=== PATIENT | male | born 1960 | race Caucasian/White ===

== ENCOUNTER → 2024-10-20 | Outpatient (CLI) | payer MEDICAID, SELFPAY ==
--- NOTE | 2024-10-20 14:38 | CT_ITS ---
PROCEDURE: CT EXTREMITY LOWER RIGHT WITHOUT CONTRAST REASON FOR EXAM: Right knee osteoarthritis. Pre-surgical planning for total knee arthroplasty. TECHNIQUE: Multiple, axial CT images of the right knee were obtained without intravenous contrast for pre-surgical planning. Axial images through the right hip and right ankle are obtained as well. Coronal and sagittal 2D reformatted images were provided. COMPARISON: None. FINDINGS: There are moderate to severe tricompartment degenerative changes involving the right knee joint greatest along the medial knee joint compartment with severe joint space narrowing, marginal osteophytes, and subchondral sclerosis. There is chondrocalcinosis of the knee joint. There is a moderate suprapatellar knee joint effusion. There is a Enriquez's cyst measuring 4.6 x 1.3 x 1.4 cm. There is atrophy of the musculature. No acute fracture or dislocation is identified. There are degenerative changes of the right hip joint. Colonic diverticulosis is identified. No acute findings are seen involving the ankle region. There are degenerative changes with diminished bone mineralization. CT/Extremity Lower without Contra IMPRESSION: 1. Examination performed for pre-surgical planning. 2. Moderate to severe tricompartment degenerative changes of the right knee christopher nt greatest involving the medial knee joint compartment. 3. Moderate suprapatellar knee joint effusion. 4. Enriquez's cyst. One or more dose reduction techniques were used (e.g., Automated exposure contr ol, adjustment of the mA and/or kV according to patient size, use of iterative reconstruction technique). Reading Location: [facility]
== END | disposition home or self-care (01) ==
PROVIDERS: Referring Provider Orthopaedic Surgery; Visit Provider Orthopaedic Surgery
DX: M17.11 Unilateral primary osteoarthritis, right knee (principal)
CPT/HCPCS: 73700

== ENCOUNTER 2024-12-07 10:22 | Inpatient (IN) | payer MEDICAID, SELFPAY ==
--- NOTE | 2024-10-20 16:10 | PAT.ANESEVAL ---
Pre-Assessment Diagnosis/Proposed Procedure Planned Operative Procedure(s): RIGHT TOTAL KNEE ARTHROPLASTY Anesthesia History Anesthesia History - dispensing operator: Anesthesia History - dispensing operator Hx Hospitalization Yes 10/19/24 13:45 Any Problems With Anesthesia No 10/19/24 13:45 Cholinesterase deficiency No 10/19/24 13:45 You/Your Family Experience No 10/19/24 13:45 fever (hyperthermia) with Relationship Recent Exposure to Contagious Disease Does patient have nerve No 10/19/24 13:45 stimulator Patient instructed to have device shut off --Does patient have Pacemaker or ICD? When Was Last Pacemaker Check QUESTION #4 FULL TEXT: You/Your Family Experience fever (hyperthermia) with Anesthesia Last Oral Intake Last Oral intake: Last Oral Intake NPO since Meds taken in AM with sips of water? Meds patient instructed to take am of surgery PONV PONV - dispensing operator: PONV - dispensing operator Female No 10/19/24 13:45 HX of Motion Sickness No 10/19/24 13:45 HX of N/V After Surgery No 10/19/24 13:45 Non-Smoker Yes 10/19/24 13:45 Duration of Surgery greater Yes 10/19/24 13:45 than 60 minutes Number of Risk Factors 2 10/19/24 13:45 PONV Score Moderate Risk 10/19/24 13:45 Respiratory Assessment Respiratory Assessment - dispensing operator: Respiratory Tract Infection Hx - dispensing operator Hx Respiratory Tract Infection No 10/19/24 13:45 STOP Sleep Apnea STOP Sleep Apnea - dispensing operator: STOP Sleep Apnea - dispensing operator Hx Hypertension No 10/19/24 13:45 Hx Sleep Apnea No 10/19/24 13:45 CPAP BIPAP Do you snore loudly (louder No 10/19/24 13:45 than talking or can be heard Do you often feel tired/ No 10/19/24 13:45 fatigued/ sleepy during daytime? Has anyone observed you stop No 10/19/24 13:45 breathing during sleep? STOP Results Negative 10/19/24 13:45 QUESTION #5 FULL TEXT : Do you snore loudly (louder than talking or can be heard through closed doors)? 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 Specify any problems Hx of Preganancy in last 3 N/A 10/19/24 13:45 Months Nurse Filling Out Transfusion DSCHRIBER 10/19/24 13:45 & Questions: Date: 10/19/24 10/19/24 13:45 Time: 13:47 10/19/24 13:45 Patient unable to answer at this time (ie. confused, unrespo /Reproduction History /Reproductive History - dispensing operator: /Reproductive Hx- dispensing operator Hx Now No 10/19/24 13:45 Gestational Age (in weeks): EDC: Hx Hx Para Hx Section SAB No 10/19/24 13:45 PFSH Medical History (Updated 10/19/24 @ 14:09 by Gwendolyn Larson) Chronic respiratory failure Lives in alf Wears glasses Alcohol use Thyroid disease Arthritis BPH (benign prostatic hyperplasia) Low iron Gastric reflux Former smoker Hepatic fibrosis Polyneuropathy Otitis media History of edema History of pain when walking Hypotension History of CHF (congestive heart failure) Home Medications ?Medication ?Instructions ?Recorded ?Last Taken ?Type acetaminophen 325 mg capsule 325 mg PO Q4H PRN pain 09/27/24 Unknown History capsaicin 0.1 % topical cream 1 applic topical QHS LEG PAIN 09/27/24 Unknown History cholecalciferol (vitamin D3) 50 50 mcg PO QDAY SUPPLEMENT 09/27/24 Unknown History mcg (2,000 unit) capsule clotrimazole-betamethasone 1 1 applic topical DAILY RIGHT CHEEK 09/27/24 Unknown History %-0.05 % topical cream cyanocobalamin (vitamin B-12) 500 500 mcg PO QDAY SUPPLEMENT 09/27/24 Unknown History mcg lozenges diclofenac sodium 50 mg 50 mg PO Q6H PRN pain 09/27/24 Unknown History tablet,delayed release empagliflozin 10 mg tablet 10 mg PO QDAY CHF 09/27/24 Unknown History (Jardiance) ferrous sulfate 325 mg (65 mg 325 mg PO QDAY IRON DEFICIENCY 09/27/24 Unknown History iron) tablet fluticasone propionate 50 1 spray intranasal QHS MASTOIDITIS 09/27/24 Unknown History mcg/actuation nasal LEFT EAR spray,suspension folic acid 1 mg tablet 1 mg PO QDAY ANEMIA 09/27/24 Unknown History furosemide 20 mg tablet 20 mg PO MOWEFR CHF 09/27/24 Unknown History gabapentin 300 mg capsule 300 mg PO QDAY PAIN 09/27/24 Unknown History ipratropium 0.5 mg-albuterol 3 mg 3 ml inhalation Q4H PRN shortness 09/27/24 Unknown History (2.5 mg base)/3 mL nebulization of breath soln levothyroxine 25 mcg capsule 25 mcg PO QDAY HYPOTHYROIDISM 09/27/24 Unknown History magnesium oxide 400 mg PO 4X/DAY HYPOMAGNESEMIA 09/27/24 Unknown History melatonin 3 mg capsule 6 mg PO HS PRN sleep 09/27/24 Unknown History metoprolol tartrate 25 mg tablet 12.5 mg PO QDAY CHF 09/27/24 Unknown History miconazole nitrate 2 % topical 1 applic topical QDAY ROSECA 09/27/24 Unknown History powder midodrine 10 mg tablet 10 mg PO TID HYPOTENSION 09/27/24 Unknown History pantoprazole 40 mg tablet,delayed 40 mg PO QDAY GERD 09/27/24 Unknown History release (Protonix) sodium chloride 0.65 % nasal spray 1 spray intranasal DAILY 09/27/24 Unknown History aerosol (Saline Nasal Mist) MASTOIDITIS LEFT EAR spironolactone 25 mg tablet 12.5 mg PO QDAY FLUID RETENTION 09/27/24 Unknown History tamsulosin 0.4 mg capsule 0.4 mg PO QHS BPH 09/27/24 Unknown History gabapentin 300 mg capsule 900 mg PO QHS NERVE PAIN 10/19/24 Unknown History Allergy/AdvReac Type Severity Reaction Status Date / Time No Known Allergies Allergy Unverified 09/27/24 09:10 Surgical History (Updated 10/19/24 @ 14:09 by Gwendolyn Larson) History of myringotomy History of knee surgery H/O foot surgery Social History (Updated 09/27/24 @ 09:12 by Karyn Ramos) Smoking Status: Former smoker alcohol intake: never Audit: Pertinent Findings Pertinent Findings Consult pertinent findings: Cardiology 10/18/2024 for preoperative clearance check stress test and if no reversible ischemia will be optimized from a cardiac standpoint. History of heart failure with preserved ejection fraction euvolemic obtain recent labs Recommendation Anesthesia Recommendation Anesthesia recommendation: F/U recommended (Per cardiology consultation 10/18/2024 stress test was recommended await stress test results)
--- NOTE | 2024-10-25 08:44 | PAT.ANE_ITS ---
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 When Was Last Pacemaker Check QUESTION #4 FULL TEXT: You/Your Family Experience fever (hyperthermia) with Anesthesia Last Oral Intake Last Oral intake: Last Oral Intake NPO since Meds taken in AM with sips of water? Meds patient instructed to take am of surgery PONV PONV - business continuity consultant: PONV - business continuity consultant Female No 10/19/24 13:45 HX of Motion Sickness No 10/19/24 13:45 HX of N/V After Surgery No 10/19/24 13:45 Non-Smoker Yes 10/19/24 13:45 Duration of Surgery greater Yes 10/19/24 13:45 than 60 minutes Number of Risk Factors 2 10/19/24 13:45 PONV Score Moderate Risk 10/19/24 13:45 Respiratory Assessment Respiratory Assessment - business continuity consultant: Respiratory Tract Infection Hx - business continuity consultant Hx Respiratory Tract Infection No 10/19/24 13:45 STOP Sleep Apnea STOP Sleep Apnea - business continuity consultant: STOP Sleep Apnea - business continuity consultant Hx Hypertension No 10/19/24 13:45 Hx Sleep Apnea No 10/19/24 13:45 CPAP BIPAP Do you snore loudly (louder No 10/19/24 13:45 than talking or can be heard Do you often feel tired/ No 10/19/24 13:45 fatigued/ sleepy during daytime? Has anyone observed you stop No 10/19/24 13:45 breathing during sleep? STOP Results Negative 10/19/24 13:45 QUESTION #5 FULL TEXT : Do you snore loudly (louder than talking or can be heard through closed doors)? 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 Specify any problems Hx of Preganancy in last 3 N/A 10/19/24 13:45 Months Nurse Filling Out Transfusion DSCHRIBER 10/19/24 13:45 & Questions: Date: 10/19/24 10/19/24 13:45 Time: 13:47 10/19/24 13:45 Patient unable to answer at this time (ie. confused, unrespo /Reproduction History /Reproductive History - business continuity consultant: /Reproductive Hx- business continuity consultant Hx Now No 10/19/24 13:45 Gestational Age (in weeks): EDC: Hx Hx Para Hx Section SAB No 10/19/24 13:45 Active Medications Active Medications: Current Medications Generic Name Dose Route Start Last Admin Trade Name Freq PRN Reason Stop Dose Admin Acetaminophen 1,000 mg 10/26/24 11:00 Acetaminophen 500 Mg Tablet PO 10/26/24 11:01 X1 ONE Celecoxib 400 mg 10/26/24 11:00 Celecoxib 200 Mg Capsule PO 10/26/24 11:01 X1 ONE Dexamethasone Sodium Phosphate 10 mg 10/26/24 11:00 Dexamethasone 10 Mg/Ml Vial IV 10/26/24 11:01 X1 ONE Gabapentin 600 mg 10/26/24 11:00 Gabapentin 600 Mg Tablet PO 10/26/24 11:01 X1 ONE Cefazolin Sodium 2 gm/ N/A 20 mls @ 400 mls/hr 10/26/24 11:00 IV 10/26/24 11:02 PREOP ONE Tranexamic Acid 1,000 mg/ 110 mls @ 660 mls/hr 10/26/24 11:00 Sodium Chloride IV 10/26/24 11:09 X1 ONE Tranexamic Acid 1,000 mg/ 110 mls @ 660 mls/hr 10/26/24 11:00 Sodium Chloride IV 10/26/24 11:09 X1 ONE Lactated Ringer's 1,000 mls @ 125 mls/hr 10/26/24 11:00 IV 10/26/24 18:59 .Q8H NICOLAS Insulin Human Lispro 1 - 6 unit 10/26/24 11:00 Insulin Lispro 100 Unit/Ml Insuln.Pen SC 10/26/24 23:59 Q4H PRN PRN BG>/= 180, SEE PROTOCOL Protocol Scopolamine HBr 1 patch 10/26/24 11:00 Scopolamine 1mg/72hr Patch TD 10/26/24 11:01 X1 ONE PFS Medical History (Updated 10/19/24 @ 14:09 by Gwendolyn Larson) Chronic respiratory failure Lives in senior care Wears glasses Alcohol use Thyroid disease Arthritis BPH (benign prostatic hyperplasia) Low iron Gastric reflux Former smoker Hepatic fibrosis Polyneuropathy Otitis media History of edema History of pain when walking Hypotension History of CHF (congestive heart failure) Home Medications ?Medication ?Instructions ?Recorded ?Last Taken ?Type acetaminophen 325 mg capsule 325 mg PO Q4H PRN pain Unknown History capsaicin 0.1 % topical cream 1 applic topical QHS LEG PAIN 09/27/24 Unknown History cholecalciferol (vitamin D3) 50 50 mcg PO QDAY SUPPLEM ENT 09/27/24 Unknown History mcg (2,000 unit) capsule clotrimazole-betamethasone 1 1 applic topical DAILY RI GHT CHEEK 09/27/24 Unknown History %-0.05 % topical cream cyanocobalamin (vitamin B-12) 500 500 mcg PO QDAY SUPP LEMENT 09/27/24 Unknown History mcg lozenges diclofenac sodium 50 mg 50 mg PO Q6H PRN pain Unknown History tablet,delayed release empagliflozin 10 mg tablet 10 mg PO QDAY CHF 09/27/24 Unknown History (Jardiance) ferrous sulfate 325 mg (65 mg 325 mg PO QDAY IRON DEFI CIENCY 09/27/24 Unknown History iron) tablet fluticasone propionate 50 1 spray intranasal QHS MASTO IDITIS 09/27/24 Unknown History mcg/actuation nasal LEFT EAR spray,suspension folic acid 1 mg tablet 1 mg PO QDAY ANEMIA 09/27/24 Unknown History furosemide 20 mg tablet 20 mg PO MOWEFR CHF 09/27/24 Unknown History gabapentin 300 mg capsule 300 mg PO QDAY PAIN 09/27/24 Unknown History ipratropium 0.5 mg-albuterol 3 mg 3 ml inhalation Q4H PRN shortness 09/27/24 Unknown History (2.5 mg base)/3 mL nebulization of breath soln levothyroxine 25 mcg capsule 25 mcg PO QDAY HYPOTHYROI DISM 09/27/24 Unknown History magnesium oxide 400 mg PO 4X/DAY HYPOMAGNESE DEYSI 09/27/24 Unknown History melatonin 3 mg capsule 6 mg PO HS PRN sleep 5 Unknown History metoprolol tartrate 25 mg tablet 12.5 mg PO QDAY CHF 0 09/27/24 Unknown History miconazole nitrate 2 % topical 1 applic topical QDAY R OSECA 09/27/24 Unknown History powder midodrine 10 mg tablet 10 mg PO TID HYPOTENSION Unknown History pantoprazole 40 mg tablet,delayed 40 mg PO QDAY GERD 0 09/27/24 Unknown History release (Protonix) sodium chloride 0.65 % nasal spray 1 spray intranasal DAILY 09/27/24 Unknown History aerosol (Saline Nasal Mist) MASTOIDITIS LEFT EAR spironolactone 25 mg tablet 12.5 mg PO QDAY FLUID RETE NTION 09/27/24 Unknown History tamsulosin 0.4 mg capsule 0.4 mg PO QHS BPH 09/27/24 U nknown History gabapentin 300 mg capsule 900 mg PO QHS NERVE PAIN 08/02 Unknown History Allergy/AdvReac Type Severity Reaction Status Date / Time No Known Allergies Allergy Unverified 09/27/24 09:10 Surgical History (Updated 10/19/24 @ 14:09 by Gwendolyn Larson) History of myringotomy History of knee surgery H/O foot surgery Social History (Updated 09/27/24 @ 09:12 by Karyn Ramos) Smoking Status: Former smoker alcohol intake: never Audit: Pertinent Findings HISTORY of Pertinent Findings History of Pertinent Findings: Consult Pertinent Findings Consult pertinent findings Cardiology 10/18/2024 for 10/20/24 16:11 preoperative clearance check stress test and if no reversible ischemia will be optimized from a cardiac standpoint. History of heart failure with preserved ejection fraction euvolemic obtain recent labs Pertinent Findings Consult pertinent findings: Cardiology 10/20/2024 had stress test 10/21/2024 negative stress test should be optimized from cardiovascular standpoint Recommendation Anesthesia Recommendation Anesthesia recommendation: OPTIMIZED for anesthesia
[2024-11-26 08:06] LABS: Partial Thromboplast Time 28.1 Seconds (24.1-36.2)
[2024-12-07] VITALS (17 sets, daily range): BP systolic 100–138; BP diastolic 59–76; PULSE 51–80; RESP 16–18; TEMP 36.5–37.2; O2SAT 94–100; BMI 24.2
[2024-12-07 06:19] LABS: Bedside Glucose 102 mg/dL (74-106)
[2024-12-07] MEDS: 0.9% Normal Saline (1000mL) 1,000 ML 15 ML IV (06:25)
[2024-12-07] MEDS: Magnesium 1 GM over 15 mins IV (06:26)
[2024-12-07] MEDS: Scopolamine 1mg/72hr Patch 1 PATCH TD (06:44)
[2024-12-07] MEDS: Acetaminophen 500 MG Tablet 1000 MG PO ×2 (06:44→18:15)
[2024-12-07] MEDS: Celecoxib 200 MG Capsule 400 MG PO (06:44)
[2024-12-07] MEDS: Gabapentin 600 MG Tablet PO (06:45)
--- NOTE | 2024-12-07 06:56 | PCM.PRE.AN2 ---
ASA Classification* ASA Classification ASA Classification: 3 Assessment & Plan Anesthesia* Anesthesia Assessment Anesthesia Assessment: Discussed sedation and/or anesthesia options, risks, benefits, and alternatives with patient/parents/legal guardian/POA. Questions invited. The patient/parents/legal guardian/POA seems to understand and agrees to proceed with anesthesia plan. Reviewed the physical assessment, medical history, allergy history and patient home medications list prior to surgery/procedure/anesthetic and documented any changes. Performed airway and anesthesia risk assessments. Anesthesia Type Anesthesia Type: Spinal and Block (Patient is consented for adductor canal block.) History Source History Obtained from:: Patient and Chart Anesthesia Focused Assessment* Temperature: 98.2 F Pulse Rate: 51 Blood Pressure: 138/65 Respiratory Rate: 16 Pulse Ox: 100 Oxygen Delivery Method: Nasal Cannula (Patient uses nasal cannula at nighttime) Airway Assessment Mouth opens: >3 cm Mallampati Score: I Teeth Condition: Missing (Patient is edentulous.) Neck Range of motion (ROM): Limited ROM (Slight decrease in extension) Focused Labs Anesthesia Preop lab: CBC CHEMISTRY POC Glucose 102 mg/dL (74-106) 12/07/24 05:56 12/07/24 COAG Pre-Assessment Diagnosis/Proposed Procedure Planned Operative Procedure(s): RIGHT TOTAL KNEE ARTHROPLASTY Anesthesia History 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 When Was Last Pacemaker Check QUESTION #4 FULL TEXT: You/Your Family Experience fever (hyperthermia) with Anesthesia Last Oral Intake Last Oral intake: Last Oral Intake NPO since 22:00 12/07/24 06:38 Meds taken in AM with sips of Yes 12/07/24 06:38 water? 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 Female No 11/09/24 14:48 HX of Motion Sickness No 11/09/24 14:48 HX of N/V After Surgery No 11/09/24 14:48 Non-Smoker Yes 11/09/24 14:48 Duration of Surgery greater Yes 11/09/24 14:48 than 60 minutes Number of Risk Factors 2 11/09/24 14:48 PONV Score Moderate Risk 11/09/24 14:48 Height & Weight Height & Weight: Anesthesia: Height & Weight Height 6 ft 2 in 12/07/24 06:38 Weight: 85.638 kg 12/07/24 06:38 Body Mass Index (BMI) 24.2 12/07/24 06:38 Respiratory Assessment Respiratory Assessment - 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 Has anyone observed you stop No 11/09/24 14:48 breathing during sleep? STOP Results Negative 11/09/24 14:48 QUESTION #5 FULL TEXT : Do you snore loudly (louder than talking or can be heard through closed doors)? 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 Specify any problems Hx of Preganancy in last 3 N/A 11/09/24 14:48 Months Nurse Filling Out Transfusion NBUCHER 11/09/24 14:48 & Questions: Date: 11/09/24 11/09/24 14:48 Time: 14:48 11/09/24 14:48 Patient unable to answer at this time (ie. 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: /Reproductive Hx- tungsten refiner Hx Now No 11/09/24 14:48 Gestational Age (in weeks): EDC: Hx Hx Para Hx Section SAB No 11/09/24 14:48 Active Medications Active Medications: Current Medications Generic Name Dose Route Start Last Admin Trade Name Freq PRN Reason Stop Dose Admin Acetaminophen 1,000 mg 12/07/24 07:30 12/07/24 06:44 Acetaminophen 500 Mg Tablet PO 12/07/24 07:31 1,000 mg X1 ONE Administration Celecoxib 400 mg 12/07/24 07:30 12/07/24 06:44 Celecoxib 200 Mg Capsule PO 12/07/24 07:31 400 mg X1 ONE Administration Dexamethasone Sodium Phosphate 10 mg 12/07/24 07:30 Dexamethasone 10 Mg/Ml Vial IV 12/07/24 07:31 X1 ONE Gabapentin 600 mg 12/07/24 07:30 12/07/24 06:45 Gabapentin 600 Mg Tablet PO 12/07/24 07:31 600 mg X1 ONE Administration Cefazolin Sodium 2 gm/ N/A 20 mls @ 400 mls/hr 12/07/24 07:30 IV 12/07/24 07:32 PREOP ONE Tranexamic Acid 1,000 mg/ 110 mls @ 660 mls/hr 12/07/24 07:30 Sodium Chloride IV 12/07/24 07:39 X1 ONE Tranexamic Acid 1,000 mg/ 110 mls @ 660 mls/hr 12/07/24 07:30 Sodium Chloride IV 12/07/24 07:39 X1 ONE Lactated Ringer's 1,000 mls @ 125 mls/hr 12/07/24 07:30 IV 12/07/24 15:29 .Q8H NICOLAS Magnesium Sulfate 1 gm/ 102 mls @ 408 mls/hr 12/07/24 07:30 12/07/24 06:48 Dextrose IV 12/07/24 07:44 Infused X1 ONE Infusion Sodium Chloride 1,000 mls @ 15 mls/hr 12/07/24 05:35 12/07/24 06:25 IV 15 mls/hr .Q48H NICOLAS Administration Insulin Human Lispro 1 - 6 unit 12/07/24 07:30 Insulin Lispro 100 Unit/Ml Insuln.Pen SC Q4H PRN PRN BG>/= 180, SEE PROTOCOL Protocol Scopolamine HBr 1 patch 12/07/24 07:30 12/07/24 06:44 Scopolamine 1mg/72hr Patch TD 12/07/24 07:31 1 patch X1 ONE Administration PFSH Medical History Chronic respiratory failure Lives in long-term Wears glasses Alcohol use Thyroid disease Arthritis BPH (benign prostatic hyperplasia) Low iron Gastric reflux Former smoker Hepatic fibrosis Polyneuropathy Otitis media History of edema History of pain when walking Hypotension History of CHF (congestive heart failure) Home Medications ?Medication ?Instructions ?Recorded ?Last Taken ?Type acetaminophen 325 mg capsule 325 mg PO Q4H PRN pain 09/27/24 12/06/24 20:30 History capsaicin 0.1 % topical cream 1 applic topical QHS LEG PAIN 09/27/24 Unknown History cholecalciferol (vitamin D3) 50 50 mcg PO QDAY SUPPLEMENT 09/27/24 12/06/24 08:00 History mcg (2,000 unit) capsule clotrimazole-betamethasone 1 1 applic topical DAILY RIGHT CHEEK 09/27/24 Unknown History %-0.05 % topical cream cyanocobalamin (vitamin B-12) 500 500 mcg PO QDAY SUPPLEMENT 09/27/24 12/06/24 08:00 History mcg lozenges diclofenac sodium 50 mg 50 mg PO Q6H PRN pain 09/27/24 12/05/24 History tablet,delayed release empagliflozin 10 mg tablet 10 mg PO QDAY CHF 09/27/24 12/01/24 History (Jardiance) ferrous sulfate 325 mg (65 mg 325 mg PO QDAY IRON DEFICIENCY 09/27/24 12/06/24 08:00 History iron) tablet fluticasone propionate 50 1 spray intranasal QHS MASTOIDITIS 09/27/24 12/06/24 08:00 History mcg/actuation nasal LEFT EAR spray,suspension folic acid 1 mg tablet 1 mg PO QDAY ANEMIA 09/27/24 12/06/24 08:00 History furosemide 20 mg tablet 20 mg PO MOWEFR CHF 09/27/24 12/06/24 08:00 History gabapentin 300 mg capsule 300 mg PO QDAY PAIN 09/27/24 12/06/24 14:00 History ipratropium 0.5 mg-albuterol 3 mg 3 ml inhalation Q4H PRN shortness 09/27/24 Unknown History (2.5 mg base)/3 mL nebulization of breath soln levothyroxine 25 mcg capsule 25 mcg PO QDAY HYPOTHYROIDISM 09/27/24 12/06/24 03:00 History magnesium oxide 400 mg PO 4X/DAY HYPOMAGNESEMIA 09/27/24 12/06/24 14:00 History melatonin 3 mg capsule 6 mg PO HS PRN sleep 09/27/24 Unknown History metoprolol tartrate 25 mg tablet 12.5 mg PO QDAY CHF 09/27/24 12/07/24 05:00 History miconazole nitrate 2 % topical 1 applic topical QDAY ROSECA 09/27/24 12/05/24 History powder midodrine 10 mg tablet 10 mg PO TID HYPOTENSION 09/27/24 12/06/24 18:00 History pantoprazole 40 mg tablet,delayed 40 mg PO QDAY GERD 09/27/24 12/06/24 08:00 History release (Protonix) sodium chloride 0.65 % nasal spray 1 spray intranasal DAILY 09/27/24 12/06/24 08:00 History aerosol (Saline Nasal Mist) MASTOIDITIS LEFT EAR spironolactone 25 mg tablet 12.5 mg PO QDAY FLUID RETENTION 09/27/24 12/06/24 14:00 History tamsulosin 0.4 mg capsule 0.4 mg PO QHS BPH 09/27/24 12/06/24 08:00 History gabapentin 300 mg capsule 900 mg PO QHS NERVE PAIN 10/19/24 12/06/24 22:00 History Allergy/AdvReac Type Severity Reaction Status Date / Time No Known Allergies Allergy Verified 12/07/24 05:58 Surgical History History of myringotomy History of knee surgery H/O foot surgery Social History Smoking Status: Former smoker alcohol intake: never Review of Systems (Anesthesia) ROS Narrative System reviewed and no additional complaints, except as documented.
--- NOTE | 2024-12-07 07:12 | PCM.HP.BLA ---
History and Physical Date of Admission: 12/07/24 [facility] [address] [place] [address] OFFICE VISIT Date of Service: 09/27/24 MR#: [id number] Acct: [id number] Name: GURJIT MENENDEZ Rep #: [id number] : 1960 Provider: Dr. Laron Vazquez DO Age/Sex: 63/M [place] [facility] [place] Status: Signed with Addenda ADDENDUM by Dr. Laron Vazquez DO on 10/13/24 at 1048 Assessment and Plan Assessment and Plan (1) Osteoarthritis of right knee: Status: Acute Qualifiers: Osteoarthritis type: primary Qualified Code(s): M17.11 - Unilateral primary osteoarthritis, right knee Orders: Orders Knee 4 or More Views 09/27/24 M25.561 - Pain in right knee Plan Since our last visit we did obtain some additional medical records from all [facility]. Patient was admitted and discharged October 07, 2023 with acute hypoxic respiratory failure he did require stay in the intensive care unit. He was readmitted to the hospital in October 2023 with acute blood loss anemia chronic diastolic heart failure. his debility after this admission was greatly increased and he was unable to return home requiring him to enter a custodial facility he has struggled to gain his independence because of his immobility. He will likely require rehab prior to returning to custodial facility. We did obtain medical clearance however we will obtain additional cardiac clearance. 10/13/24 1048 <Electronically signed by Laron Vazquez DO> Date Laron Vazquez DO cc: ~* Signed Intake Intake Visit Reasons: RIGHT KNEE Accompanied by: Self Is patient in pain?: Yes Pain scale (1-10): 8 Allergies No Known Allergies Allergy (Unverified 09/27/24 09:10) Medications ?Medication ?Instructions ?Recorded ?Confirmed ?Type acetaminophen 325 mg capsule 325 mg PO Q4H PRN 09/27/24 09/27/24 History capsaicin 0.1 % topical cream 1 applic topical BID 09/27/24 09/27/24 History cholecalciferol (vitamin D3) 50 50 mcg PO QDAY 09/27/24 09/27/24 History mcg (2,000 unit) capsule clotrimazole-betamethasone 1 1 applic topical ONCE 09/27/24 09/27/24 History %-0.05 % topical cream cyanocobalamin (vitamin B-12) 500 500 mcg PO QDAY 09/27/24 09/27/24 History mcg lozenges diclofenac sodium 50 mg 50 mg PO Q6H PRN 09/27/24 09/27/24 History tablet,delayed release empagliflozin 10 mg tablet 10 mg PO QDAY 09/27/24 09/27/24 History (Jardiance) ferrous sulfate 325 mg (65 mg 325 mg PO QDAY 09/27/24 09/27/24 History iron) tablet fluticasone propionate 50 1 spray intranasal QDAY 09/27/24 09/27/24 History mcg/actuation nasal spray,suspension folic acid 1 mg tablet 1 mg PO QDAY 09/27/24 09/27/24 History furosemide 20 mg tablet 20 mg PO QDAY 09/27/24 09/27/24 History gabapentin 300 mg capsule 300 mg PO QDAY 09/27/24 09/27/24 History ipratropium 0.5 mg-albuterol 3 mg 3 ml inhalation Q4H PRN 09/27/24 09/27/24 History (2.5 mg base)/3 mL nebulization soln levothyroxine 25 mcg capsule 25 mcg PO QDAY 09/27/24 09/27/24 History magnesium oxide 400 mg PO QDAY 09/27/24 09/27/24 History melatonin 3 mg capsule 3 mg PO HS PRN 09/27/24 09/27/24 History metoprolol tartrate 25 mg tablet 25 mg PO QDAY 09/27/24 09/27/24 History miconazole nitrate 2 % topical 1 applic topical QDAY 09/27/24 09/27/24 History powder midodrine 10 mg tablet 10 mg PO TID 09/27/24 09/27/24 History pantoprazole 40 mg tablet,delayed 40 mg PO QDAY 09/27/24 09/27/24 History release (Protonix) sodium chloride 0.65 % nasal spray 1 spray intranasal ONCE 09/27/24 09/27/24 History aerosol (Saline Nasal Mist) spironolactone 25 mg tablet 25 mg PO QDAY 09/27/24 09/27/24 History tamsulosin 0.4 mg capsule 0.4 mg PO QDAY 09/27/24 09/27/24 History PFSH Surgical History (Updated 09/27/24 @ 09:16 by Karyn Raoms) History of knee surgery H/O foot surgery Social History (Updated 09/27/24 @ 09:12 by Karyn Ramos) Smoking Status: Former smoker alcohol intake: never HPI RIGHT KNEE Details: This documentation accurately reflects the service provided and the decisions made by me, Dr. Laron Vazquez, DO 09/27/24 0759. Part of today?s visit was documented by Karyn Feliciano ATC, acting as scribe. GURJIT MENENDEZ is a 63 year old M from [facility] who has medical history significant for alcohol abuse, nicotine dependence, GERD, hypertension, hepatic fibrosis, hypothyroidism, history of metabolic encephalopathy here today for right knee pain. He has not had any alcohol or tobacco nicotine since his admission last year. patient states the knee has been bothering him for quite a while but after a serious sickness about a year ago after developing a severe ear infection he became debilitated hospitalized for months and unable to walk and not sure of the specifics of this as I do not have the reports. At this point he does very little ambulating only a few steps which he attributes to the knee. Patient comes in today in a wheelchair and states he will sometimes use a cane but he can't go very far at all. Patient states the knee feels very unstable. If the knee is not in a straight line he states he will fall down. He states he is unable to ambulate stairs at all. Patient complains of numbness/tingling and radiating pain that goes down into the toes and he does take gabapentin. He states most of the pain is over the anterior aspect of the knee. Patient states when he was 17 he did have surgery on the knee after an injury while jumping over a fence and hitting a rock but does not remember what they did. Patient denies injections recently but did have some in his teenage years after this injury. He states when he was discharged from the hospital to [facility] due to debility and has been there since, they did physical therapy but once he could use a walker they released him from PT. They do give him Tylenol for the pain. Patient was in the [facility] starting at age 28 and was in for 4 years. Ortho Exam General General: Yes no acute distress and Yes well groomed Neurologic: Yes alert and Yes oriented x3 Psychologic: Yes reasonable and appropriate Right Knee Skin/Wound: Yes CDI, No erythema, No ecchymosis and No swelling Knee ROM: Yes ROM-Flexion 0-140 (92) Examination: Yes Med jt line tenderness, Yes Lat jt line tenderness, Yes TTP inf pole patella, Yes Crepitus, Yes Pain with flexion and Yes Pain with extention Stability: NML: Anterior Drawer and NML: Posterior Drawer and 1+: Valgus 0, 1+: Valgus 30, 1+: Varus 0 and 1+: Varus 30 Patella Translation: 1 KNEE: lacking 18 degrees EXT significant various deformity significant bony hypertrophy no joint effusion good sensation 2 mm medial gapping 2 mm lateral gapping - Drawer Left Knee Patella Translation: 1 Head: Normocephalic Atraumatic Chest: symmetrical rise, non-labored breathing, no audible wheeze Abdomen: no guarding, non-rigid Supplemental Info 09/27/2024 x-ray right knee: Advanced tricompartmental knee DJD with bony erosion of the medial tibial plateau and lateral subluxation of the tibia Coding Level of Care Code Off vis,new,level 3 Diagnoses Primary osteoarthritis of right knee M17.11 Osteoarthritis type: primary Assessment and Plan Assessment and Plan (1) Osteoarthritis of right knee: Status: Acute Qualifiers: Osteoarthritis type: primary Qualified Code(s): M17.11 - Unilateral primary osteoarthritis, right knee Orders: Orders Knee 4 or More Views Today M25.561 - Pain in right knee Plan Reviewed imaging with patient and explained the knee is severely arthritic. He most likely has ACL and possibly PCL ligamentous insufficiency in the knee as there is subluxation of the tibia. Spoke to patient that his options would be: do nothing, bracing, steroid injections, viscosupplementation injections, physical therapy, anti-inflammatory medication, or TKA. Explained the surgical procedure to the patient as he is interested in moving forward with the surgery. Recommended the more range of motion he can get out of the knee prior to surgery the better he will feel after the surgery. Explained that if he has any type of infections in his body or in his teeth he would need to take care of these prior to moving forward with surgery. Patient would like to move forward with the surgery. Explained he cannot take any Ibuprofen/Aleve 7 days prior to surgery. He will need to get medical clearance particularly as I do not know the extent of what happened over the past year that caused his significant debility and hospitalization for such a long time. Risks, benefits and alternatives of surgery reviewed including but not limited to bleeding, infection, nerve, artery and/or tissue damage, fracture, VTE, mechanical feel of the knee, continued pain, stiffness and expected post-operative course. Tentative surgery date October 26, 2024 admission. Follow up in an as needed basis or sooner if pain, swelling, numbness or associated symptoms, or concerns develop. All questions answered. Patient in agreement of plan. 09/27/24 1059 <Electronically signed by Laron Vazquez DO> Date Laron Vazquez DO I have examined the patient and the H&P has been reviewed. There are no clinical changes since date of exam.
--- NOTE | 2024-12-07 07:30 | KNEE_PTH ---
PATIENT: GURJIT MENENDEZ LOC: MS3 U#:[id number] AGE/SX: 64/M ROOM: PR325 RE12/07/[address]: Dr. Laron Vazquez DO : 1960 BED: 1 DIS: 12/09/2024 SPEC #: [id number] RECD: 12/07/24 11:54 STATUS: JOSE HALEIGH #: [id number] DENIA: 12/07/24 07:[address]: Laron Vazquez DEPT: SURGICAL PATHOLOGY RECD BY: Beata Zambrano ENTERED: 12/07/24 12:21 SP TYPE: TOTAL KNEE RYAN DR: No Primary Care Phys Tissues: A - Knee, NOS Procedures: Decalcification bone/plaque Surgery Specimen Level III HEADER OPERATION: ERAS, right total knee replacement robotic arm assist PRE-OP DIAGNOSIS: Osteoarthritis of right knee TISSUE SUBMITTED: A- Debrided bone and tissue right knee MICROSCOPIC DIAGNOSIS A. Right Knee, Osteoarthritis, Total Arthroplasty: - Osteoarthritic reactive and degenerative changes. - Fibrocartilage with amorphous deposits - see note. Note: The tissue was received in formalin, therefore a touch prep for uric acid/gout was not performed. Examination with polarized light of the chalky material reveals non-urate crystals. Uric acid crystals, if present, would not be preserved after tissue processing. There is no inflammatory reaction to the amorphous deposits noted. MICROSCOPIC DESCRIPTION Slides are reviewed. GROSS DESCRIPTION A. Received in formalin in a container labeled with the patient's name, date of , and debrided bone and tissue R knee are multiple red-jamison, firm, and irregular fragments of bone and soft tissue fragments measuring 11.0 x 10.0 x 3.0 cm in aggregate. The specimen consists of, but is not limited to, disrupted tibial plateau and possible medial/lateral condyles. The resection margins are smooth and firm, and the opposing cortical surfaces are pitted and granular with smooth areas of possible eburnation. There is a 0.6 x 0.5 cm focus of white-roth, chalky material. Sectioning reveals firm and unremarkable surfaces. Masonry Instructor sections:A1. Soft tissue and chalky materialA2. Bone, following decalcification [facility] 12-07-2024 CPT:66996,[id number]
[2024-12-07] MEDS: Cefazolin 2 GM in Syringe 10 ML IV (07:41)
[2024-12-07] MEDS: TXA 1000mg in NS100 100ml (IVPB at Incision) 660 MG IV (07:46)
[2024-12-07] MEDS: dexAMETHasone 10 MG/ML Vial IV (07:46)
[2024-12-07] MEDS: TXA 1000mg in NS100 100ml (IVPB at Closure) 660 MG IV (08:28)
[2024-12-07] MEDS: Bupivacaine 0.5% PF 10 ML VIAL (09:05)
[2024-12-07] MEDS: dexAMETHasone 4 MG/ML Vial (09:05)
[2024-12-07] MEDS: Epinephrine (1 mg/ml) 1 MG/ML VIAL (09:05)
[2024-12-07] MEDS: 0.9% Normal Saline (Pres. free 10 ML Vial (09:05)
--- NOTE | 2024-12-07 10:31 | OP.PCM_ITS ---
Operative Report (Standard) Operative Information Date of Procedure: 12/07/24 Pre-Operative Diagnosis: Right knee DJD varus deformity Post-Operative Diagnosis: Same Surgery/Procedure Performed: Robotic assisted right total knee arthroplasty fermentation operator: Yes Application Development Specialist: Nico Diane Tasks completed by geological survey field assistant: Opening & closing Additional clinical physician assistant?: No Type of Anesthesia: Spinal RN Documented Start/Stop Times: Operation Date: 12/07/24 07:30 Case Time Into Pre-Op 12/07/24 05:30 Anesthesia Start 12/07/24 07:42 Into Room 12/07/24 07:42 Procedure Start 12/07/24 08:01 Procedure End 12/07/24 10:22 Anesthesia End 12/07/24 10:27 Out of Room 12/07/24 10:27 Procedure Start Time: 08:01 Procedure Stop Time: 10:22 Select all DRAINS/GRAFTS/IMPLANTS that apply: Prosthetic device Prosthetic device details: Reva Estimated Blood Loss: 150 Specimen collected: Yes Description of specimen(s) removed: Bone Description of surgery: Preoperative diagnosis: Right knee DJD Postoperative diagnosis: Same Procedure: Right total knee arthroplasty CT guided Robotic Assisted Implant: Reva triathlon cemented, femoral component size 7, tibial baseplate size 6, asymmetric patella size 38, polyethylene X3 size 9 CS Anesthesia: Spinal with adductor canal block Complications: None Condition: Stable to PACU Estimated blood loss: 150 cc Coke Oven Patcher Nico Diane. My physician clinical physician assistant was a vital part of this case. He was important in appropriate retraction during the case, and protection of soft tissues during procedure. His intimate knowledge of the case and my steps aided in safe and expedient completion of the procedure as well as appropriate position of the extremity during the case. He was also vital in assisting with closure under my direct supervision. Indication for procedure: This is a 64-year-old male with long standing degenerative joint disease of the knee who has failed conservative treatment and wished to proceed with elective total knee arthroplasty. Risk benefits and alternatives were reviewed including; risk of bleeding, infection, nerve artery and tissue damage, continued pain, postoperative stiffness, venous thromboembolism, need for postoperative rehabilitation, mechanical feel to the knee, and expected postoperative course. The pre- operative CT and templating was performed with component sizing. Procedure: The patient was met in the preoperative holding area. The operative extremity was identified by both patient and physician and was marked. Patient was met by anesthesia. An adductor canal block was placed by anesthesia postoperatively the patient was brought back to the operating room on a wheeled cart and transferred to the operating table in the supine position. Anesthesia was started. A well-padded tourniquet was placed on the operative extremity. The patient was prepped and draped in the usual sterile fashion. A timeout was called to ensure the proper patient procedure and extremity were being contemplated. An esmarch was used to exsanguinate the extremity. The tourniquet was inflated. A 10 blade scalpel was used to make a midline incision down through the skin and subcutaneous tissue. Skin retractors placed. Bovie and Aquamantis were used to perform meticulous hemostasis. full-thickness flaps were elevated medial and lateral along the joint capsule. A deep blade scalpel was used to perform a medial parapatellar arthrotomy. The knee was brought to full extension. A bovie was used to release the soft tissues off the most pr oximal aspect of the medial tibial plateau, a three-quarter inch curved osteotome was also used in this process. The infrapatellar fat pad was excised. The suprapatellar fat pad was excised partially anteriorolateraly and portion the anterioromedial pad was elevated from the femur. At this point our intra- articular femoral array was placed at a 45 degree angle proximal and posterior to the medial epicondyle. femoral checkpoint was placed at this time. Our tibial array was placed partially intra incisional 1 stab incision was made for the inferior pin with a 15 blade scaple, and pins were placed and attached to the tibial array , tibial checkpoint was placed in the proximal tibial metaphysis. Tourniquet was let down. At this point registration hawkins were taken throughout the knee . Once the knee was registered we then tensioned the medial and lateral ligaments in extension and 90 degrees of flexion. We then used these numbers to adjust our components within parameters to balance the knee in both flexion and extension once this was done on our monitor we then proceeded with using the robotic arm to make our tibial plateau cut, anterior and posterior chamfer and distal femur cuts. we removed the cut fragments with the use of a bovie and Zoie, we did use a lamina spreader operator automatic to insure we visualized and removed all posterior osteophytes and at this time also used the Aquamantis on the posterior joint capsule. we then trialed and achieved the desired plan with a well-balanced knee. we used the green probe to pau the corresponding tibial rotation based on our CT template. Lug holes were drilled in the femur the tibia preparation was completed with the appropriate sized base plate pinned based on previous rotation pau. An appropriate sized fin punch was used on the tibia and the patella was prepared by first using a caliper to ensure sufficient bone stock and a patellar reamer to remove the desired amount of bone. lug holes drilled for an asymmetric poly. We then brought the knee through range of motion with excellent patellar tracking. We thoroughly irrigated the knee. Trial components were removed a posterior capsular injection was preformed with our standard cocktail. In addition the aqua Mantis was also used to aid in hemostasis. Betadine rinse was allowed to sit and washed out completely. Components were cemented into place excess cement was removed with a [place] elevator. Aricept rinse was then used followed by several more liters of irrigation after it was allowed to sit. The joint capsule was closed with #1 Ethibond [id number]'s in the upper part of the arthrotomy and #1 Vicryl in the lower part of the arthrotomy. , Followed by 2-0 Vicryl in the subcutaneous tissues with micheal in the skin. Arrays and checkpoints were removed prior to closure all counts were correct stab incisions were closed with a staple standard dressing in the form of Mepilex AG for the main incision and a small Mepilex over the pin holes. Thigh-high REGINA hose applied over top of dressing. Patient tolerated the procedure well and was directed to PACU in stable condition . There were no intraoperative complications. Surgical Findings: Advanced knee arthrosis significant deformity and flexion contracture Complications Complications: No
--- NOTE | 2024-12-07 10:40 | RAD_ITS ---
PROCEDURE: KNEE 1 OR 2 VIEWS 12/07/2024 REASON FOR EXAM: POST OP TECHNIQUE: 2 view(s) of the right knee COMPARISON: Comparison is made with prior study dated September 27, 2024. FINDINGS: The patient is status post right total knee replacement. There is good alignment. Postoperative soft tissue changes. RAD/Knee 1 or 2 Views IMPRESSION: Status post total knee replacement. There is good alignment. Postoperative soft tissue changes. Reading Location: [facility]
--- NOTE | 2024-12-07 10:44 | PCM.POST.ANE ---
Anesthesia: Postop Eval I Current Vital Signs Temperature: 97.8 F Pulse Rate: 80 Blood Pressure: 115/71 Respiratory Rate: 16 Pulse Ox: 94 Assessment Airway patent: Yes Spontaneous unlabored respirations: Yes nausea: No Vomiting: No Anesthesia Complication: No Fluid Hydration Crystalloid volume administer (ml): 1,800 Total IV fluid infused: 1,800 Progress Note Anesthesia document: Postop Eval 1 completed: Yes
[2024-12-07] MEDS: Lactated Ringers 1,000 ML 125 ML IV ×2 (11:00→13:18)
--- NOTE | 2024-12-07 11:22 | POSTOPAN2_ITS ---
Anesthesia Postop Eval I Sum Postop Eval Completion status Anesthesia document: Postop Eval 1 completed: Yes Anesthesia Postop Eval I Summary Anesthesia Postop Eval I Summary: Anesthesia Postop Eval I: Assessment Summary Airway patent Yes 12/07/24 10:44 COCKTAIL LOUNGE [email or web address] Spontaneous unlabored Yes 12/07/24 10:44 COCKTAIL LOUNGE [email or web address] respirations Mental status nausea No 12/07/24 10:44 COCKTAIL LOUNGE [email or web address] Vomiting No 12/07/24 10:44 COCKTAIL LOUNGE [email or web address] Anesthesia Postop Eval I: Fluid Summary Crystalloid volume administer 1,800 12/07/24 10:44 COCKTAIL LOUNGE [email or web address] (ml) Colloids volume administered ( ml) Blood Product volume administered (ml) Total IV fluid infused 1,800 12/07/24 10:44 COCKTAIL LOUNGE [email or web address] Anesthesia Postop Eval I: Summary Notes Anesthesia Complication No 12/07/24 10:44 COCKTAIL LOUNGE [email or web address] Anesthesia Complication Comment: Post-operative progress note Anesthesia: Postop Eval II Evaluation Mental status: Awake and Calm Pain Level: 1 nausea: No Vomiting: No Complications Anesthesia Complication: No
--- NOTE | 2024-12-07 11:22 | PCM.POSTANE2 ---
Anesthesia Postop Eval I Sum Postop Eval Completion status Anesthesia document: Postop Eval 1 completed: Yes Anesthesia Postop Eval I Summary Anesthesia Postop Eval I Summary: Anesthesia Postop Eval I: Assessment Summary Airway patent Yes 12/07/24 10:44 [email or web address] [email or web address] Spontaneous unlabored Yes 12/07/24 10:44 [email or web address] [email or web address] respirations Mental status nausea No 12/07/24 10:44 [email or web address] [email or web address] Vomiting No 12/07/24 10:44 [email or web address] [email or web address] Anesthesia Postop Eval I: Fluid Summary Crystalloid volume administer 1,800 12/07/24 10:44 [email or web address] [email or web address] (ml) Colloids volume administered ( ml) Blood Product volume administered (ml) Total IV fluid infused 1,800 12/07/24 10:44 [email or web address] Anesthesia Postop Eval I: Summary Notes Anesthesia Complication No 12/07/24 10:44 [email or web address] [email or web address] Anesthesia Complication Comment: Post-operative progress note Anesthesia: Postop Eval II Evaluation Mental status: Awake and Calm Pain Level: 1 nausea: No Vomiting: No Complications Anesthesia Complication: No
[2024-12-07] MEDS: Cefazolin 2 GM in Syringe IV ×2 (13:46→22:22)
--- NOTE | 2024-12-07 15:03 | PN_ITS ---
Subjective Subjective Patient is a 64-year-old male with a past medical history as outlined was admitted to the service of orthopedics on 12/07/2024 for right knee replacement. Hospitalist service was consulted for medical management. Patient was seen after surgery. HE was lying comfortably in bed and had no complaints. Pain was fairly well controlled. He denied any fever, chills, cough, chest pain, palpitations, dizziness, nausea, vomiting or diarrhea. He says he wears oxygen at night in his SN[facility]. Vitals at time of review were temperature of 98.6 Fahrenheit with pulse rate of 54 and blood pressure 120/67. Respiratory to 16 and he was saturating at 98% on 2 L of oxygen. Objective Data Objective Data Vital Signs: Vital Signs Temp Pulse Resp BP Pulse Ox O2 Del Method O2 Flow Rate 98.6 F 54 L 16 120/67 98 Nasal Cannula 2 12/07/24 12:46 12/07/24 12:46 12/07/24 12:46 12/07/24 12:46 12/07/24 12:46 12/07/24 13:06 12/07/24 13:06 Oxygen Flow Rate (L/min) 2 Oxygen Delivery Method Nasal Cannula Weight: 188 lb 12.8 oz Body Mass Index (BMI) 24.2 Intake & Output: Intake and Output for Last 24 Hours 12/05/24 12/06/24 12/07/24 23:59 23:59 23:59 Intake Total 342 / 342 Balance 342 / 342 Lab / Micro Data Labs: Laboratory Results - last 24 hr 12/07/24 05:56: POC Glucose 102 12/07/24 06:18: Blood Type B POSITIVE, Antibody Screen NEGATIVE Micro: Microbiology 11/26/24 06:51 Swab (Method) Nasal Screen MRSA/MSSA - Final Radiography Diagnostic Testing: Radiology Impression Knee X-Ray 12/07/24 10:40 IMPRESSION: Status post total knee replacement. There is good alignment. Postoperative soft tissue changes. Reading Location: [id number] Physical Exam Const alert, oriented x3 and no apparent distress Constitutional Narrative: frail General Appearance: cooperative HEENT normocephalic, head/scalp atraumatic and moist oral mucous membranes Eyes PERRL and EOMs intact bilaterally Neck no lymphadenopathy and supple Lymph Lymphatic: no lymphadenopathy noted and no lymphedema noted Resp Resp Narrative: mildly diminished breath sounds bibasally, no wheezes or crackles. On 2L of oxygen by nasal canula Cardio regular rate, regular rhythm, S1 normal heart sound, S2 normal heart sound and no murmurs GI normal to inspection, nondistended, normoactive bowel sounds, soft to palpation, non-tender and non-distended Extremity Extremity Narrative: right knee wrapped in bandage. Neuro CN's II-XII intact bilaterally and no focal motor deficits Motor Exam: general weakness Psych thought process normal, cooperative and affect normal Appearance: appropriate Assessment & Plan Assessment/Plan (1) Osteoarthritis of right knee: QUALIFIERS: Osteoarthritis type: primary Qualified Code(s): M17.11 - Unilateral primary osteoarthritis, right knee (2) Hypertension: PLAN: Plan #Osteoarthritis of the right knee s/p right knee total replacement * today is POD 0 * management as per orthopedics surgery * PT/OT on board. Fall precautions * incentive spirometry * #Hypertension:on metoprolol and spironolactone #HFpEF: on lasix and jardiance. Also on spironolactone. NO echo in our records to confirm EF. #BPH: on flomax. #Hypothyroidism: on synthroid. #Chronic respiratory failure * wears 2 L of oxygen at night mainly. * Currently on 2 L of oxygen. Likely due to heart failure. Titrate oxygen to maintain saturation above 90%. DVT prophylaxis: as per primary service. THank you for the courtesy of the consult. The hospitalist service will continue to follow with you. Charges/Coding Visit Charges Inpatient E&M: 61994 Subs Hosp L2
[2024-12-07] MEDS: oxyCODONE 5 MG Tablet PO ×2 (15:13→20:17)
[2024-12-07] MEDS: Ensure Surgery 237 ML LIQUID PO (18:15)
[2024-12-07] MEDS: Senna/Docusate Sodium 1 Tablet 2 TABLET PO (22:55)
[2024-12-08 00:50] VITALS: BP 128/72; PULSE 56; RESP 16; TEMP 36.9; O2SAT 98
[2024-12-08 04:32] VITALS: BP 118/72; PULSE 54; RESP 16; TEMP 36.6; O2SAT 96
[2024-12-08] MEDS: Acetaminophen 500 MG Tablet 1000 MG PO ×3 (06:41→20:53)
[2024-12-08] MEDS: Cefazolin 2 GM in Syringe IV (06:41)
[2024-12-08] MEDS: APIXABAN 2.5 MG TABLET (WCH) PO ×2 (06:42→20:53)
[2024-12-08 07:33] LABS: Hematocrit 30.7 % (40-54); Hemoglobin 10.5 g/dL (13.0-16.5); Mean Corp Hgb Conc 34.2 g/dL (32-36); Mean Corpuscular Hgb 33.5 pg (27.0-32.0); Mean Corpuscular Volume 98.1 fL (80-94); Mean Platelet Vol. 11.2 fl (6.2-12.0); Platelet Count 178 K/mm3 (150-450); RBC Distribution Width CV 12.9 % (11.6-14.6); RBC Distribution Width SD 45.8 fl (35.1-43.9); Red Blood Count 3.13 M/mm3 (4.6-6.2); White Blood Count 16.9 K/mm3 (4.4-11.0)
[2024-12-08 08:01] LABS: Anion Gap 8 (5-15); BUN 24 mg/dL (4-19); BUN/Creat Ratio 23.9 RATIO (10-20); Calcium,Total 8.9 mg/dL (7.6-11.0); Carbon Dioxide 21.2 mmol/L (21.0-32.0); Chloride 106 mmol/L (98-108); Creatinine, Serum 1.02 mg/dL (0.70-1.20); EST Glomerular Filtration Rate 82 (>60); Estimated Creatinine Clearance 85.07 ml/min (50-250); Glucose 133 mg/dL (70-99); Sodium Level 136 mmol/L (133-145)
[2024-12-08 08:22] VITALS: BP 118/63; PULSE 52; RESP 14; TEMP 36.7; O2SAT 97
--- NOTE | 2024-12-08 10:06 | NURSING ---
@3167, pt out f room with therapy
[2024-12-08] MEDS: Senna/Docusate Sodium 1 Tablet 2 TABLET PO ×2 (10:39→20:53)
[2024-12-08] MEDS: oxyCODONE 5 MG Tablet PO ×3 (10:42→20:51)
--- NOTE | 2024-12-08 11:49 | PCM.PN.ORT ---
Subjective Subjective Seen and examined. Doing well pain controlled. No fevers chills nausea vomiting shortness of breath or chest pain or other complaints or concerns he did ambulate with physical therapy and was able to do some stairs Objective Data Objective Data Vital Signs: Vital Signs Temp Pulse Resp BP Pulse Ox O2 Del Method O2 Flow Rate 98.0 F 52 L 14 118/63 97 Room Air 2 12/08/24 08:22 12/08/24 08:22 12/08/24 08:22 12/08/24 08:22 12/08/24 08:22 12/08/24 08:22 12/08/24 04:32 Oxygen Flow Rate (L/min) 2 Oxygen Delivery Method Room Air Weight: 188 lb 12.8 oz Body Mass Index (BMI) 24.2 Intake & Output: Intake and Output for Last 24 Hours 12/06/24 12/07/24 12/08/24 23:59 23:59 23:59 Intake Total 2382 / 2382 20 / 20 Output Total 950 / 950 400 / 400 Balance 1432 / 1432 -380 / -380 Lab / Micro Data 12/08/24 07:15 12/08/24 07:15 Labs: Laboratory Results - last 24 hr 12/08/24 07:15: WBC 16.9 H, RBC 3.13 L, Hgb 10.5 L, Hct 30.7 L, MCV 98.1 H, MCH 33.5 H, MCHC 34.2, RDW Std Deviation 45.8 H, RDW Coeff of Cynthia 12.9, Plt Count 178, MPV 11.2, Sodium 136, Potassium 5.0, Chloride 106, Carbon Dioxide 21.2, Anion Gap 8, BUN 24 H, Creatinine 1.02, Estim Creat Clear Calc 85.07, Est GFR (MDRD) Non-Af 82, BUN/Creatinine Ratio 23.9 H, Glucose 133 H, Calcium 8.9 Micro: Microbiology 11/26/24 06:51 Swab (Method) Nasal Screen MRSA/MSSA - Final Physical Exam Const alert, oriented x3 and no apparent distress General Appearance: cooperative Extremity Extremity Narrative: Right knee dressing mostly clean dry intact there is some bloody drainage at the inferior extent of the dressing however it is not leaking through. He does have subcutaneous hematoma/seroma. Very mild expected erythema around the dressing. Compartments soft neurovascular intact. Assessment & Plan Assessment/Plan (1) S/P total knee arthroplasty: QUALIFIERS: Laterality: right Qualified Code(s): Z96.651 - Presence of right artificial knee joint PLAN: Plan Postop day #1 right total knee arthroplasty PT OT weightbearing as tolerated DVT prophylaxis SCDs REGINA hose Eliquis 2.5 mg twice daily for 2 weeks There is mild bloody drainage on the inferior aspect of the dressing as long as this is not leaking out we will leave it in place for 5 days postop. He should keep his legs elevated when he is sitting except for brief periods of rest if needed. Pain control oxycodone and Tylenol. DC planning Venkat godinez tomorrow then follow-up in the office 2 weeks.
--- NOTE | 2024-12-08 11:52 | DCINST_ITS ---
Discharge Instructions Diet Discharge Diet: 2200 Calorie Control Diet (Minimize postoperative sweets as hyperglycemia around the time of surgery can increase risk of infection) DC O2, CPAP, BIPAP needs Home O2 Discharge instructions: Yes Type of respiratory needs?: Oxygen Oxygen frequency: Continuous Continuous oxygen liters per minute: 2 Dressing / Incision Weight Bearing Status: Weight bearing as tolerated Keep extremity elevated above heart level: Operative Extremity Dressing / Incision Call your doctor if you observe: Shortness of breath and Chest pain Additional Dressing/Incision Instructions:: Ice and elevate lower extremities 2 weeks while not ambulating. Ambulation is encouraged. Weight bearing as tolerated. Use assistive devise for stability. Encourage FULL knee extension and flexion 1 time EVERY time you get up and down and MULTIPLE times per day. No showering until 72 hours after surgery. May begin showering postop day #3. Remove the dressing prior to shower and gently wash with warm water and antibacterial soap then pat dry and place abdominal pad (or plain gauze) and REGINA hose over top. If you decide not to begin showering 72 hrs post operatively and wish to sponge bath only, then you may leave dressing undisturbed for up to 1 week, but must remove prior to first shower. Do not submerge for 3 weeks. If not showering daily after the initial dressing is removed you must clean incision and change dressing daily after the dressing comes off, must come off by 7 days postop. Do not allow animals near the incision area. Keep clean. Follow anti-coagulation recommendations as prescribed. Do not take any NSAIDs while on blood thinner. Do not take any additional narcotic pain medication other than what was prescribed on your surgery day without discussing with physician. Narcotic medication can be addictive. Do not drink alcohol while taking narcotics. Supplement narcotic prescription with acetaminophen 1000 mg 4 times a day. Start physical therapy. If you are not currently scheduled for physical therapy or you are unsure of appointment time please call office [facility] to arrange. Call Dr. Vazquez's office ) with any concerns. Follow Up Care Please Follow Up With: Laron Vazquez DO When: 2 weeks Test Results: Test results from this visit will be discussed in further detail at your follow- up appointment, if applicable. Discharge Plan Admission Admit Date/Time: 12/07/24 10:22 Primary Reason for Your Visit: Right total knee arthroplasty Attending Provider: Laron Vazquez Primary Care Provider: Care Physician,No Primary Consulting Providers: Salvador Aceves; Darell Cook Discharge Orders/Prescriptions Prescriptions: New oxycodone 5 mg tablet 5 - 10 mg PO Q4H PRN (Reason: pain) 7 Days Qty: 60 0RF Eliquis 2.5 mg tablet 2.5 mg PO BID Qty: 28 0RF acetaminophen 500 mg tablet 1,000 mg PO Q6H Qty: 100 0RF Continued cyanocobalamin (vitamin B-12) 500 mcg lozenge 500 mcg PO QDAY capsaicin 0.1 % cream 1 applic topical QHS Rx Instructions: do not wash area for at least 30 min after application clotrimazole-betamethasone 1-0.05 % cream 1 applic topical DAILY fluticasone propionate 50 mcg/actuation spray,suspension 1 spray intranasal QHS Rx Instructions: administer into each nostril folic acid 1 mg tablet 1 mg PO QDAY furosemide 20 mg tablet 20 mg PO MOWEFR gabapentin 300 mg capsule 300 mg PO QDAY ipratropium-albuterol 0.5 mg-3 mg(2.5 mg base)/3 mL solution for nebulization 3 ml inhalation Q4H PRN (Reason: shortness of breath) ferrous sulfate 325 mg (65 mg iron) tablet 325 mg PO QDAY Jardiance 10 mg tablet 10 mg PO QDAY levothyroxine 25 mcg capsule 25 mcg PO QDAY magnesium oxide 400 mg magnesium capsule 400 mg PO 4X/DAY melatonin 3 mg capsule 6 mg PO HS PRN (Reason: sleep) metoprolol tartrate 25 mg tablet 12.5 mg PO QDAY miconazole nitrate 2 % powder 1 applic topical QDAY midodrine 10 mg tablet 10 mg PO TID Rx Instructions: do not give last dose of day after 6PM or within 4 hrs of bedtime pantoprazole [Protonix] 40 mg tablet,delayed release (DR/EC) 40 mg PO QDAY Saline Nasal Mist 0.65 % aerosol,spray 1 spray intranasal DAILY spironolactone 25 mg tablet 12.5 mg PO QDAY tamsulosin 0.4 mg capsule 0.4 mg PO QHS cholecalciferol (vitamin D3) 50 mcg (2,000 unit) capsule 50 mcg PO QDAY gabapentin 300 mg capsule 900 mg PO QHS Held acetaminophen 325 mg capsule 325 mg PO Q4H PRN (Reason: pain) Hold Instructions: Duplicate diclofenac sodium 50 mg tablet,delayed release (DR/EC) 50 mg PO Q6H PRN (Reason: pain) Hold Instructions: May resume after completion of blood thinner Referrals / Follow Up: Care Physician,No Primary [Primary Care Provider] - Disposition Disposition (needs filled in before D/C Order can be placed): [facility]
--- NOTE | 2024-12-08 11:59 | PCM.TXEXTCAR ---
Diet Diet Order/Speech Therapy: 12/07/24 15:31 Diet: Regular - General DC O2, CPAP, BIPAP needs Home O2 Discharge instructions: Yes Type of respiratory needs?: Oxygen Oxygen frequency: Continuous Continuous oxygen liters per minute: 2 Wound(s) rt knee: Wound Type: Surgical Incision Therapies Weight Bearing: Full weight bearing Physical Therapy: Eval and Treat Occupational Therapy: Eval and Treat Problem/Diagnosis (1) S/P total knee arthroplasty: Status: Acute Code(s): Z96.659 - Presence of unspecified artificial knee joint Plan Postop day #1 right total knee arthroplasty PT OT weightbearing as tolerated DVT prophylaxis SCDs REGINA hose Eliquis 2.5 mg twice daily for 2 weeks There is mild bloody drainage on the inferior aspect of the dressing as long as this is not leaking out we will leave it in place for 5 days postop. He should keep his legs elevated when he is sitting except for brief periods of rest if needed. Pain control oxycodone and Tylenol. DC planning [facility] tomorrow then follow-up in the office 2 weeks. Allergies/Procedures Done in Hospital Allergies No Known Allergies Allergy (Verified 12/07/24 05:58) Type of Care/Length of Stay Estimated LOS: More Than 30 Days Type of Care Needed: Skilled Rehab Potential: Good Prognosis: Good Additional Orders/Day of Discharge Day of Discharge: 12/09/24 Follow Up Care Please Follow Up With: Laron Vazquez DO When: 2 weeks. Discharge Plan Admission Admit Date/Time: 12/07/24 10:22 Primary Reason for Your Visit: Right total knee arthroplasty Attending Provider: Laron Vazquez Primary Care Provider: Care Physician,No Primary Consulting Providers: Salvador Aceves; Darell Cook Discharge Orders/Prescriptions Prescriptions: New oxycodone 5 mg tablet 5 - 10 mg PO Q4H PRN (Reason: pain) 7 Days Qty: 60 0RF Eliquis 2.5 mg tablet 2.5 mg PO BID Qty: 28 0RF acetaminophen 500 mg tablet 1,000 mg PO Q6H Qty: 100 0RF Continued cyanocobalamin (vitamin B-12) 500 mcg lozenge 500 mcg PO QDAY capsaicin 0.1 % cream 1 applic topical QHS Rx Instructions: do not wash area for at least 30 min after application clotrimazole-betamethasone 1-0.05 % cream 1 applic topical DAILY fluticasone propionate 50 mcg/actuation spray,suspension 1 spray intranasal QHS Rx Instructions: administer into each nostril folic acid 1 mg tablet 1 mg PO QDAY furosemide 20 mg tablet 20 mg PO MOWEFR gabapentin 300 mg capsule 300 mg PO QDAY ipratropium-albuterol 0.5 mg-3 mg(2.5 mg base)/3 mL solution for nebulization 3 ml inhalation Q4H PRN (Reason: shortness of breath) ferrous sulfate 325 mg (65 mg iron) tablet 325 mg PO QDAY Jardiance 10 mg tablet 10 mg PO QDAY levothyroxine 25 mcg capsule 25 mcg PO QDAY magnesium oxide 400 mg magnesium capsule 400 mg PO 4X/DAY melatonin 3 mg capsule 6 mg PO HS PRN (Reason: sleep) metoprolol tartrate 25 mg tablet 12.5 mg PO QDAY miconazole nitrate 2 % powder 1 applic topical QDAY midodrine 10 mg tablet 10 mg PO TID Rx Instructions: do not give last dose of day after 6PM or within 4 hrs of bedtime pantoprazole [Protonix] 40 mg tablet,delayed release (DR/EC) 40 mg PO QDAY Saline Nasal Mist 0.65 % aerosol,spray 1 spray intranasal DAILY spironolactone 25 mg tablet 12.5 mg PO QDAY tamsulosin 0.4 mg capsule 0.4 mg PO QHS cholecalciferol (vitamin D3) 50 mcg (2,000 unit) capsule 50 mcg PO QDAY gabapentin 300 mg capsule 900 mg PO QHS Held acetaminophen 325 mg capsule 325 mg PO Q4H PRN (Reason: pain) Hold Instructions: Duplicate diclofenac sodium 50 mg tablet,delayed release (DR/EC) 50 mg PO Q6H PRN (Reason: pain) Hold Instructions: May resume after completion of blood thinner Referrals / Follow Up: Care Physician,No Primary [Primary Care Provider] - (1) S/P total knee arthroplasty Qualifiers: Laterality: right Qualified Code(s): Z96.651 - Presence of right artificial knee joint
--- NOTE | 2024-12-08 12:29 | CASEMGMT ---
Discharge Planning Updates sent to [facility] asking if precert is needed. Awaiting response. Kirti Atwood DC Planning Asst.
--- NOTE | 2024-12-08 12:49 | CASEMGMT ---
Social Work- SW met with pt to discuss discharge preferences. SW introduced self and role; pt agreeable. Pt reports that he plans to return to [facility] for [facility]hab before going home. DCA updated. SW remains available to follow. Plan: [facility]; skilled level of care RENETTA Jimenez
[2024-12-08 14:11] VITALS: BP 129/64; PULSE 51; RESP 16; TEMP 36.7; O2SAT 100
--- NOTE | 2024-12-08 16:15 | NURSING ---
All documentation by professional nursing tutor Rylee Larson reviewed by inpatient nursing aide Eryn AGARWALN, RN.
[2024-12-08] MEDS: Ensure Surgery 237 ML LIQUID PO (16:24)
--- NOTE | 2024-12-08 16:50 | PN.HOSP_ITS ---
Reason for Visit Reason for Visit: Diagnoses Other acute postprocedural pain (12/07/24) Essential (primary) hypertension (12/07/24) Unilateral primary osteoarthritis, right knee (12/07/24) Encounter for other preprocedural examination (12/07/24) Presence of right artificial knee joint (12/07/24) Objective Data Objective Data Vital Signs: Vital Signs Temp Pulse Resp BP Pulse Ox O2 Del Method O2 Flow Rate 98.0 F 51 L 16 129/64 H 100 Room Air 2 12/08/24 14:11 12/08/24 14:11 12/08/24 14:11 12/08/24 14:11 12/08/24 14:11 12/08/24 14:11 12/08/24 04:32 Oxygen Flow Rate (L/min) 2 Oxygen Delivery Method Room Air Weight: 188 lb 12.8 oz Body Mass Index (BMI) 24.2 Intake & Output: Intake and Output for Last 24 Hours 12/06/24 12/07/24 12/08/24 23:59 23:59 23:59 Intake Total 2382 / 2382 1020 / 1020 Output Total 950 / 950 1050 / 1050 Balance 1432 / 1432 -30 / -30 Lab / Micro Data 12/08/24 07:15 12/08/24 07:15 Labs: Laboratory Results - last 24 hr 12/08/24 07:15: WBC 16.9 H, RBC 3.13 L, Hgb 10.5 L, Hct 30.7 L, MCV 98.1 H, MCH 33.5 H, MCHC 34.2, RDW Std Deviation 45.8 H, RDW Coeff of Cynthia 12.9, Plt Count 178, MPV 11.2, Sodium 136, Potassium 5.0, Chloride 106, Carbon Dioxide 21.2, Anion Gap 8, BUN 24 H, Creatinine 1.02, Estim Creat Clear Calc 85.07, Est GFR (MDRD) Non-Af 82, BUN/Creatinine Ratio 23.9 H, Glucose 133 H, Calcium 8.9 Micro: Microbiology 11/26/24 06:51 Swab (Method) Nasal Screen MRSA/MSSA - Final Physical Exam Narrative Patient walked around the nursing station with the PT. Patient also Calame few steps. Had moved BM yesterday. Voiding urine spontaneously. Status post right TKR. Physical exam General: Alert, Oriented x3, Cooperative HEENT: Atraumatic, PERRLA, EOMI, Normocephalic Oral: No Gingival or Mucosal Lesions/ Ulcerations Neck: Supple, No JVD, Negative Carotid Bruits Chest wall/Lungs: Air entry diminished in bilateral lung bases. No crepitation/rhonchi Cardiovascular: Regular rate, Regular Rhythm, Normal S1, Normal S2, No M/G/R Abdomen: Bowel Sounds Present, Soft, Non Tender, Non-Distended : No dysuria. No renal angle tenderness. No suprapubic tenderness. Extremities: No edema, Capillary Refill Less than 3 Seconds Skin: Right knee surgical dressing is dry. No acute tenderness Musculoskeletal: No significant tenderness over right knee operated joint. Neurological: Cranial nerves II-XII grossly intact, DTR 2+/4. No acute focal neurological deficit. Psych/Mental Status: Normal Affect, Appropriate. Assessment & Plan Assessment/Plan (1) Osteoarthritis of right knee: QUALIFIERS: Osteoarthritis type: primary Qualified Code(s): M 17.11 - Unilateral primary osteoarthritis, right knee (2) Hypertension: PLAN: Plan #Osteoarthritis of the right knee s/p right knee total replacement on 12/07/2024 * management as per orthopedics surgery * PT/OT on board. Fall precautions * incentive spirometry * On Eliquis 2.5 mg twice daily for DVT profile * #Hypertension:on metoprolol and spironolactone #HFpEF: on lasix and jardiance. Also on spironolactone. NO echo in our records to confirm EF. 12/08/2024 heart rate 51/min. BP 129/64 #BPH: on flomax. #Hypothyroidism: on synthroid. #Chronic respiratory failure * wears 2 L of oxygen at night mainly. * Currently on 2 L of oxygen. Likely due to heart failure. Titrate oxygen to maintain saturation above 90%. DVT prophylaxis: as per primary service. Patient can be discharged from the medicine point of view. Charges/Coding Visit Charges Inpatient E&M: 00292 Subs Hosp L2
[2024-12-08 20:42] VITALS: BP 128/73; PULSE 57; RESP 15; TEMP 36.8; O2SAT 98
[2024-12-09] MEDS: oxyCODONE 5 MG Tablet PO ×4 (00:51→15:41)
[2024-12-09 04:36] VITALS: BP 131/67; PULSE 99; RESP 15; TEMP 36.4; O2SAT 98
[2024-12-09] MEDS: Acetaminophen 500 MG Tablet 1000 MG PO ×2 (06:46→13:34)
--- NOTE | 2024-12-09 08:52 | CASEMGMT ---
[facility] has obtain auth to admit. It is good thru 12/10/24. SW updated. Kirti Atwood DC Planning Asst.
[2024-12-09 09:17] VITALS: BP 119/66; PULSE 74; RESP 18; TEMP 36.6; O2SAT 98
[2024-12-09] MEDS: APIXABAN 2.5 MG TABLET (WCH) PO (09:27)
[2024-12-09] MEDS: Senna/Docusate Sodium 1 Tablet 2 TABLET PO (09:27)
[2024-12-09] MEDS: 0.9% Saline Lock 10 ML Syringe IV (09:52)
[2024-12-09] MEDS: Ondansetron 4 MG/2 ML Vial IV (09:52)
--- NOTE | 2024-12-09 09:58 | PN.ORTHO_ITS ---
Subjective Subjective Nico is a pleasant 64 yo resting in bed after R TKA [address] Vazquez. Seen and examined. Doing well pain controlled. No fevers/chills, shortness of breath or chest pain. Reports increased knee pain overnight, some relief after oral pain meds and reapplying ice pack (which had been off for a period of time). Attempted PT this am, became nauseous and vomited, returned to bed and resting. Currently still has mild nausea and ice pack is on. Objective Data Objective Data Vital Signs: Vital Signs Temp Pulse Resp BP Pulse Ox O2 Del Method O2 Flow Rate 97.8 F 74 18 119/66 98 Room Air 2 12/09/24 09:17 12/09/24 09:17 12/09/24 09:17 12/09/24 09:17 12/09/24 09:17 12/09/24 09:30 12/09/24 04:36 Oxygen Flow Rate (L/min) 2 Oxygen Delivery Method Room Air Weight: 188 lb 12.8 oz Body Mass Index (BMI) 24.2 Intake & Output: Intake and Output for Last 24 Hours 12/07/24 12/08/24 12/09/24 23:59 23:59 23:59 Intake Total 2382 / 2382 1870 / 2470 1367 / 1367 Output Total 950 / 950 1400 / 3100 2060 / 2060 Balance 1432 / 1432 470 / -630 -693 / -693 Lab / Micro Data 12/08/24 07:15 12/08/24 07:15 Micro: Microbiology 11/26/24 06:51 Swab (Method) Nasal Screen MRSA/MSSA - Final Physical Exam Narrative Patient walked around the nursing station with the PT. Patient also Calame few steps. Had moved BM yesterday. Voiding urine spontaneously. Status post right TKR. Physical exam General: Alert, Oriented x3, Cooperative HEENT: Atraumatic, PERRLA, EOMI, Normocephalic Oral: No Gingival or Mucosal Lesions/ Ulcerations Neck: Supple, No JVD, Negative Carotid Bruits Chest wall/Lungs: Air entry diminished in bilateral lung bases. No crepitation/rhonchi Cardiovascular: Regular rate, Regular Rhythm, Normal S1, Normal S2, No M/G/R Abdomen: Bowel Sounds Present, Soft, Non Tender, Non-Distended : No dysuria. No renal angle tenderness. No suprapubic tenderness. Extremities: No edema, Capillary Refill Less than 3 Seconds Skin: Right knee surgical dressing is dry. No acute tenderness Musculoskeletal: No significant tenderness over right knee operated joint. Neurological: Cranial nerves II-XII grossly intact, DTR 2+/4. No acute focal neurological deficit. Psych/Mental Status: Normal Affect, Appropriate. Assessment & Plan Assessment/Plan PLAN: Plan Plan to d/c scopalamine patch Administer prn Zofran. Attempt clear liquids, lunch as tolerated. Will recheck this afternoon, if sx imporved will d/c to ECF this afternoon. Case collaborated [facility] .
--- NOTE | 2024-12-09 09:58 | PCM.PN.ORT ---
Subjective Subjective Nico is a pleasant 64 yo resting in bed after R TKA [address] Vazquez. Seen and examined. Doing well pain controlled. No fevers/chills, shortness of breath or chest pain. Reports increased knee pain overnight, some relief after oral pain meds and reapplying ice pack (which had been off for a period of time). Attempted PT this am, became nauseous and vomited, returned to bed and resting. Currently still has mild nausea and ice pack is on. Objective Data Objective Data Vital Signs: Vital Signs Temp Pulse Resp BP Pulse Ox O2 Del Method O2 Flow Rate 97.8 F 74 18 119/66 98 Room Air 2 12/09/24 09:17 12/09/24 09:17 12/09/24 09:17 12/09/24 09:17 12/09/24 09:17 12/09/24 09:30 12/09/24 04:36 Oxygen Flow Rate (L/min) 2 Oxygen Delivery Method Room Air Weight: 188 lb 12.8 oz Body Mass Index (BMI) 24.2 Intake & Output: Intake and Output for Last 24 Hours 12/07/24 12/08/24 12/09/24 23:59 23:59 23:59 Intake Total 2382 / 2382 1870 / 2470 1367 / 1367 Output Total 950 / 950 1400 / 3100 2060 / 2060 Balance 1432 / 1432 470 / -630 -693 / -693 Lab / Micro Data Attestation: I reviewed the patient's lab results. 12/08/24 07:15 12/08/24 07:15 Micro: Microbiology 11/26/24 06:51 Swab (Method) Nasal Screen MRSA/MSSA - Final Physical Exam Narrative Patient attempted to ambulate this morning with PT, became more nauseous and vomited x 1. Return to his room, applied the ice machine and is resting quietly in bed. No acute distress. Mild nausea remains. Status post right TKR. Physical exam General: Alert, Oriented x3, Cooperative HEENT: Atraumatic, PERRLA, Normocephalic Neck: Supple, No JVD, Negative Carotid Bruits Chest wall/Lungs: Air entry diminished in bilateral lung bases. No crepitation/rhonchi Cardiovascular: Regular rate, Regular Rhythm, Normal S1, Normal S2, No M/G/R Abdomen: Bowel Sounds Present, Soft, Non Tender, Non-Distended : No dysuria. Extremities: No edema, Capillary Refill Less than 3 Seconds Skin: Right knee surgical dressing is dry with small amount of dried blood to distal dressing, no increase since yesterday's assessment no acute tenderness. Neurological: Cranial nerves II-XII grossly intact, DTR 2+/4. No acute focal neurological deficit. Psych/Mental Status: Normal Affect, Appropriate. Extremity normal capillary refill, no calf tenderness and no pedal edema Extremity Narrative: There is moderate swelling around the right knee region with darkened skin, range of motion 10 to 80 degrees with increased tightness/stiffness about the knee. Full range of motion of ankle joint with minimal symptom aggravation, easily palpable PT and DP pulses, cap refill at 2 seconds. REGINA hose are in place and ice machine pack is on and running to the right knee. Calf is soft, nontender and easily compressible. Assessment & Plan Assessment/Plan (1) S/P total knee arthroplasty: QUALIFIERS: Laterality: right Qualified Code(s): Z96.651 - Presence of right artificial knee joint PLAN: Plan to d/c scopalamine patch Administer prn Zofran. Attempt clear liquids, lunch as tolerated. Will recheck this afternoon, if sx improved will d/c to ECF this afternoon. Case collaborated with . This document has been transcribed using [employer] dictation software. There may be incorrect words, spelling, and punctuation. (2) Other acute postprocedural pain: (3) Osteoarthritis of right knee: QUALIFIERS: Osteoarthritis type: primary Qualified Code(s): M17.11 - Unilateral primary osteoarthritis, right knee PLAN: Plan Plan to d/c scopalamine patch Administer prn Zofran. Attempt clear liquids, lunch as tolerated. Will recheck this afternoon, if sx imporved will d/c to ECF this afternoon. Case collaborated [facility] .
[2024-12-09 13:11] VITALS: BP 107/70; PULSE 73; RESP 18; TEMP 37.2; O2SAT 98
--- NOTE | 2024-12-09 13:36 | CASEMGMT ---
Social Work Precert has been obtained.? Physician updated and pt is ready for discharge today.? SW met with pt and they are agreeable to discharge plan to [facility].? Discharge senior planning manager and bedside nurse notified of discharge. Disposition:[facility], skilled level of care under convalescent stay. RENETTA Jimenez
--- NOTE | 2024-12-09 14:00 | PN.HOSP_ITS ---
Reason for Visit Reason for Visit: Diagnoses Other acute postprocedural pain (12/07/24) Essential (primary) hypertension (12/07/24) Unilateral primary osteoarthritis, right knee (12/07/24) Encounter for other preprocedural examination (12/07/24) Presence of right artificial knee joint (12/07/24) Objective Data Objective Data Vital Signs: Vital Signs Temp Pulse Resp BP Pulse Ox O2 Del Method O2 Flow Rate 97.8 F 74 18 119/66 98 Room Air 2 12/09/24 09:17 12/09/24 09:17 12/09/24 09:17 12/09/24 09:17 12/09/24 09:17 12/09/24 09:30 12/09/24 04:36 Oxygen Flow Rate (L/min) 2 Oxygen Delivery Method Room Air Weight: 188 lb 12.8 oz Body Mass Index (BMI) 24.2 Intake & Output: Intake and Output for Last 24 Hours 12/07/24 12/08/24 12/09/24 23:59 23:59 23:59 Intake Total 2382 / 2382 1870 / 2470 1367 / 1367 Output Total 950 / 950 1400 / 3100 2060 / 2060 Balance 1432 / 1432 470 / -630 -693 / -693 Lab / Micro Data 12/08/24 07:15 12/08/24 07:15 Micro: Microbiology 11/26/24 06:51 Swab (Method) Nasal Screen MRSA/MSSA - Final Physical Exam Narrative The patient complain of pain over right knee about 9/10 on walking but otherwise good at rest. Had moved BM yesterday. Voiding urine spontaneously. Status post right TKR on December 07, 2024. Physical exam General: Alert, Oriented x3, Cooperative HEENT: Atraumatic, PERRLA, EOMI, Normocephalic Oral: No Gingival or Mucosal Lesions/ Ulcerations Neck: Supple, No JVD, Negative Carotid Bruits Chest wall/Lungs: Air entry diminished in bilateral lung bases. No crepitation/rhonchi Cardiovascular: Regular rate, Regular Rhythm, Normal S1, Normal S2, No M/G/R Abdomen: Bowel Sounds Present, Soft, Non Tender, Non-Distended : No dysuria. No renal angle tenderness. No suprapubic tenderness. Extremities: No edema, Capillary Refill Less than 3 Seconds Skin: Right knee surgical dressing is dry. No acute tenderness Musculoskeletal: No significant tenderness over right knee operated joint. Neurological: Cranial nerves II-XII grossly intact, DTR 2+/4. No acute focal neurological deficit. Psych/Mental Status: Normal Affect, Appropriate. Assessment & Plan Assessment/Plan (1) Osteoarthritis of right knee: QUALIFIERS: Osteoarthritis type: primary Qualified Code(s): M 17.11 - Unilateral primary osteoarthritis, right knee (2) Hypertension: PLAN: Plan #Osteoarthritis of the right knee s/p right knee total replacement on 12/07/2024 * management as per orthopedics surgery * PT/OT on board. Fall precautions * incentive spirometry * On Eliquis 2.5 mg twice daily for DVT profile 12/09: Patient complained of pain but advised to continue PT and OT. Unclear whether he will need subacute rehab. Right knee extension restricted to 45 degree. #Hypertension:on metoprolol and spironolactone 12/09: Blood pressure and heart rate normal. #HFpEF: on lasix and jardiance. Also on spironolactone. NO echo in our records to confirm EF. 12/08/2024 heart rate 51/min. BP 129/64 #BPH: on flomax. #Hypothyroidism: on synthroid. #Chronic respiratory failure * wears 2 L of oxygen at night mainly. * Currently on 2 L of oxygen. Likely due to heart failure. Titrate oxygen to maintain saturation above 90%. 12/09: Patient weaned off the oxygen. Continue incentive spirometry and PEP for 1 week DVT prophylaxis: On Eliquis 2.5 mg twice daily Charges/Coding Visit Charges Inpatient E&M: 06427 Subs Hosp L2
--- NOTE | 2024-12-09 14:02 | NURSING ---
Called [facility] 2 times and did not get a nurse to answer to give report to. Pt lives on [facility]. He will be picked up at 15:00.
--- NOTE | 2024-12-09 14:03 | CASEMGMT ---
Discharge Planning Discharge orders, signed med list, and transport time sent to [facility]. Physicians will transport pt by wheelchair at 3p. Nursing, SW, and pt updated. VM left for pts son (Gasper). Kirti Atwood DC Planning Asst.
--- NOTE | 2024-12-09 14:36 | NURSING ---
Called [facility] to give report and was transferred to his nurse and the phone just rang and rang with no answer or vm.
--- NOTE | 2024-12-09 15:02 | NURSING ---
3rd and final attempt to call report to [facility], phone rang and no one answered or no vm.
--- NOTE | 2024-12-09 16:40 | NURSING ---
Nurse Ileana from [facility] called and was given a report, since this RN was unable to reach her earlier prior to pt leaving.
--- NOTE | 2024-12-10 12:07 | DS.PCM_ITS ---
Providers Date of Admission: 12/07/24 Primary Care Physician: No Primary Care Phys Consultations 12/07/24 10:27 Consult: Hospitalist Routine Consulting Provider: Salvador Aceves Reason for Consult: post op medical management, previous extended hospitilization EMERGENT Consult: No MD Notified: Yes Date Notified: 12/07/24 Time Notified: 14:48 Method of Notification: Text Reason For Visit: Right Total Knee Replacement Robotic Arm Assisted Diagnosis Discharge Diagnosis (1) Osteoarthritis of right knee: Status: Acute Code(s): M17.11 - Unilateral primary osteoarthritis, right knee Qualifiers: Osteoarthritis type: primary Qualified Code(s): M17.11 - Unilateral primary osteoarthritis, right knee (2) Hypertension: Status: Chronic Code(s): I10 - Essential (primary) hypertension Plan Postop day #1 right total knee arthroplasty PT OT weightbearing as tolerated DVT prophylaxis SCDs REGINA hose Eliquis 2.5 mg twice daily for 2 weeks There is mild bloody drainage on the inferior aspect of the dressing as long as this is not leaking out we will leave it in place for 5 days postop. He should keep his legs elevated when he is sitting except for brief periods of rest if needed. Pain control oxycodone and Tylenol. DC planning Venkat godinez tomorrow then follow-up in the office 2 weeks. Medications at Discharge Home Medications acetaminophen 325 mg capsule 325 mg PO Q4H PRN pain 09/27/24 Held on 12/08/24. Instructions: Duplicate capsaicin 0.1 % topical cream 1 applic topical QHS LEG PAIN 09/27/24 cholecalciferol (vitamin D3) 50 mcg (2,000 unit) capsule 50 mcg PO QDAY SUPPLEMENT 09/27/24 clotrimazole-betamethasone 1 %-0.05 % topical cream 1 applic topical DAILY RIGHT CHEEK 09/27/24 cyanocobalamin (vitamin B-12) 500 mcg lozenges 500 mcg PO QDAY SUPPLEMENT 09/27/24 diclofenac sodium 50 mg tablet,delayed release 50 mg PO Q6H PRN pain 09/27/24 Held on 12/08/24. Instructions: May resume after completion of blood thinner empagliflozin 10 mg tablet (Jardiance) 10 mg PO QDAY CHF 09/27/24 ferrous sulfate 325 mg (65 mg iron) tablet 325 mg PO QDAY IRON DEFICIENCY 09/27/24 fluticasone propionate 50 mcg/actuation nasal spray,suspension 1 spray intranasal QHS MASTOIDITIS LEFT EAR 09/27/24 folic acid 1 mg tablet 1 mg PO QDAY ANEMIA 09/27/24 furosemide 20 mg tablet 20 mg PO MOWEFR CHF 09/27/24 gabapentin 300 mg capsule 300 mg PO QDAY PAIN 09/27/24 ipratropium 0.5 mg-albuterol 3 mg (2.5 mg base)/3 mL nebulization soln 3 ml inhalation Q4H PRN shortness of breath 09/27/24 levothyroxine 25 mcg capsule 25 mcg PO QDAY HYPOTHYROIDISM 09/27/24 magnesium oxide 400 mg PO 4X/DAY HYPOMAGNESEMIA 09/27/24 melatonin 3 mg capsule 6 mg PO HS PRN sleep 09/27/24 metoprolol tartrate 25 mg tablet 12.5 mg PO QDAY CHF 09/27/24 miconazole nitrate 2 % topical powder 1 applic topical QDAY ROSECA 09/27/24 midodrine 10 mg tablet 10 mg PO TID HYPOTENSION 09/27/24 pantoprazole 40 mg tablet,delayed release (Protonix) 40 mg PO QDAY GERD 09/27/24 sodium chloride 0.65 % nasal spray aerosol (Saline Nasal Mist) 1 spray intranasal DAILY MASTOIDITIS LEFT EAR 09/27/24 spironolactone 25 mg tablet 12.5 mg PO QDAY FLUID RETENTION 09/27/24 tamsulosin 0.4 mg capsule 0.4 mg PO QHS BPH 09/27/24 gabapentin 300 mg capsule 900 mg PO QHS NERVE PAIN 10/19/24 acetaminophen 500 mg tablet 1,000 mg (2 x 500 mg) PO Q6H #100 tabs 12/08/24 apixaban 2.5 mg tablet (Eliquis) 2.5 mg PO BID #28 tabs 12/08/24 oxycodone 5 mg tablet 5 - 10 mg (1 - 2 x 5 mg) PO Q4H PRN pain 7 days #60 tabs 12/08/24 Hospital Course Operations total knee replacement Summary of Care Provided Hospital Course: Who has long history of degenerative joint disease to the knee who has failed conservative treatment and wished to undergo elective total knee arthroplasty. Patient underwent the aformentioned procedure on the admission date without any intraoperative complications. Patient did receive pre-and postoperative antibiotics which were discontinued within 23 hours postoperatively. Patient did receive spinal anesthesia as well as an adductor canal block postoperatively. pain was controlled with IV and transition to p.o. pain medication Patient will be discharged home with oxycodone and will continue Tylenol as well. Patient had minimal intraoperative blood loss and 2gm tranexamic acid was administered there was no need for postoperative blood transfusion Patients vital signs remained stable. Patient was started on both mechanical and chemical DVT per prophylaxis postoperatively in the form of SCDs REGINA hose and Eliquis 2.5 mg twice daily for which she will continue for 2 additional weeks post hospital discharge. thigh high regina hose placed over top of the meplix silver dressing. This should be removed 5 days post operatively and showering begun daily at that time with warm water and antibacterial soap. not to submerge for 3 weeks. To change dressing daily after first dressing change. Patient did have some nausea on postop day #2 that subsequently resolved after some Zofran he was discharged on postop day #2, patient will follow-up in the office in 2 weeks. No intrahospital complications. Weight / BMI Weight Weight: 188 lb 12.8 oz Body Mass Index (BMI) 24.2 ABG / Lab / Microbiology Data 12/08/24 07:15 12/08/24 07:15 Microbiology: Microbiology 11/26/24 06:51 Swab (Method) Nasal Screen MRSA/MSSA - Final D/C Instructions Discharge Diet: 2200 Calorie Control Diet (Minimize postoperative sweets as hyperglycemia around the time of surgery can increase risk of infection) Weight Bearing Status: Weight bearing as tolerated Keep extremity elevated above heart level: Operative Extremity Call your doctor if you observe: Shortness of breath and Chest pain Additional Dressing/Incision Instructions: Ice and elevate lower extremities 2 weeks while not ambulating. Ambulation is encouraged. Weight bearing as tolerated. Use assistive devise for stability. Encourage FULL knee extension and flexion 1 time EVERY time you get up and down and MULTIPLE times per day. No showering until 72 hours after surgery. May begin showering postop day #3. Remove the dressing prior to shower and gently wash with warm water and antibacterial soap then pat dry and place abdominal pad (or plain gauze) and REGINA hose over top. If you decide not to begin showering 72 hrs post operatively and wish to sponge bath only, then you may leave dressing undisturbed for up to 1 week, but must remove prior to first shower. Do not submerge for 3 weeks. If not showering daily after the initial dressing is removed you must clean incision and change dressing daily after the dressing comes off, must come off by 7 days postop. Do not allow animals near the incision area. Keep clean. Follow anti-coagulation recommendations as prescribed. Do not take any NSAIDs while on blood thinner. Do not take any additional narcotic pain medication other than what was prescribed on your surgery day without discussing with physician. Narcotic medication can be addictive. Do not drink alcohol while taking narcotics. Supplement narcotic prescription with acetaminophen 1000 mg 4 times a day. Start physical therapy. If you are not currently scheduled for physical therapy or you are unsure of appointment time please call office [facility] to arrange. Call Dr. Vazquez's office ) with any concerns. DC O2, CPAP, BIPAP Needs Home O2 Discharge instructions: Yes Type of respiratory needs?: Oxygen Oxygen frequency: Continuous Continuous oxygen liters per minute: 2 DC home with Oxygen: Yes Home O2 MD Review: I have reviewed the oxygen testing, and the patient qualifies for home oxygen equipment and portability. The patient is mobile in the home and the community. Please Follow Up With: Laron Vazquez DO When: 2 weeks Meaningful Use Info Meaningful Use Meaningful Use Diagnoses (Choose all that apply): None applicable Ischemic Stroke Statin Dosing Therapy Reference: STATIN DOSE THERAPY REFERENCE: * Patients > 75 years receive moderate or high dose statin therapy. * Patients 75 years or YOUNGER should receive HIGH intensity statin dose unless contraindicated. You will be required to document reason for non-treatment if statin daily dose does not meet guidelines. HIGH DOSE STATIN THERAPY DAILY Atorvastatin > than or = to 40 mg Rosuvastatin > than or = to 20 mg Amlodipine + Atorvastatin > than or = to 2.5/40 mg Ezetimibe + Simvastatin 10/80 mg Simvastatin 80mg Discharge Plan Admission Admit Date/Time: 12/07/24 10:22 Primary Reason for Your Visit: Right total knee arthroplasty Attending Provider: Laron Vazquez Primary Care Provider: Care Physician,No Primary Consulting Providers: Salvador Aceves; Darell Cook Discharge Orders/Prescriptions Prescriptions: New oxycodone 5 mg tablet 5 - 10 mg PO Q4H PRN (Reason: pain) 7 Days Qty: 60 0RF Eliquis 2.5 mg tablet 2.5 mg PO BID Qty: 28 0RF acetaminophen 500 mg tablet 1,000 mg PO Q6H Qty: 100 0RF Continued cyanocobalamin (vitamin B-12) 500 mcg lozenge 500 mcg PO QDAY capsaicin 0.1 % cream 1 applic topical QHS Rx Instructions: do not wash area for at least 30 min after application clotrimazole-betamethasone 1-0.05 % cream 1 applic topical DAILY fluticasone propionate 50 mcg/actuation spray,suspension 1 spray intranasal QHS Rx Instructions: administer into each nostril folic acid 1 mg tablet 1 mg PO QDAY furosemide 20 mg tablet 20 mg PO MOWEFR gabapentin 300 mg capsule 300 mg PO QDAY ipratropium-albuterol 0.5 mg-3 mg(2.5 mg base)/3 mL solution for nebulization 3 ml inhalation Q4H PRN (Reason: shortness of breath) ferrous sulfate 325 mg (65 mg iron) tablet 325 mg PO QDAY Jardiance 10 mg tablet 10 mg PO QDAY levothyroxine 25 mcg capsule 25 mcg PO QDAY magnesium oxide 400 mg magnesium capsule 400 mg PO 4X/DAY melatonin 3 mg capsule 6 mg PO HS PRN (Reason: sleep) metoprolol tartrate 25 mg tablet 12.5 mg PO QDAY miconazole nitrate 2 % powder 1 applic topical QDAY midodrine 10 mg tablet 10 mg PO TID Rx Instructions: do not give last dose of day after 6PM or within 4 hrs of bedtime pantoprazole [Protonix] 40 mg tablet,delayed release (DR/EC) 40 mg PO QDAY Saline Nasal Mist 0.65 % aerosol,spray 1 spray intranasal DAILY spironolactone 25 mg tablet 12.5 mg PO QDAY tamsulosin 0.4 mg capsule 0.4 mg PO QHS cholecalciferol (vitamin D3) 50 mcg (2,000 unit) capsule 50 mcg PO QDAY gabapentin 300 mg capsule 900 mg PO QHS Held acetaminophen 325 mg capsule 325 mg PO Q4H PRN (Reason: pain) Hold Instructions: Duplicate diclofenac sodium 50 mg tablet,delayed release (DR/EC) 50 mg PO Q6H PRN (Reason: pain) Hold Instructions: May resume after completion of blood thinner Referrals / Follow Up: Care Physician,No Primary [Primary Care Provider] - Disposition Disposition (needs filled in before D/C Order can be placed[facility]
== END 2024-12-09 15:45 | DRG 326 ==
LOC: MS3 11:27
PROVIDERS: Admitting Provider Orthopaedic Surgery; Referring Provider Orthopaedic Surgery; Visit Provider Orthopaedic Surgery
PROC: 0SRC0JZ Replacement of Right Knee Joint with Synthetic Substitute, Open Approach (ICD-10-PCS; CPT 27447; principal; 2024-12-07 07:00)
DX: M17.11 Unilateral primary osteoarthritis, right knee (principal); J96.10 Chronic respiratory failure, unspecified whether with hypoxia or hypercapnia; I11.0 Hypertensive heart disease with heart failure; I50.30 Unspecified diastolic (congestive) heart failure; E03.9 Hypothyroidism, unspecified; M24.569 Contracture, unspecified knee; M21.161 Varus deformity, not elsewhere classified, right knee; R11.2 Nausea with vomiting, unspecified; Z87.891 Personal history of nicotine dependence; Z99.81 Dependence on supplemental oxygen; N40.0 Benign prostatic hyperplasia without lower urinary tract symptoms; Z79.899 Other long term (current) drug therapy; Z79.890 Hormone replacement therapy; Z79.51 Long term (current) use of inhaled steroids; Z79.52 Long term (current) use of systemic steroids
CPT/HCPCS: 36415; 73560; 80048; 82962; 85027; 85730; 86850; 86900; 86901; 87081; 88305; 88311; 94640; 94668; 97110; 97162; 97166; 97530; 97535; C1776; A4216; J2405; J3475

== ENCOUNTER → 2025-03-29 | Outpatient (CLI) | payer MEDICAID, SELFPAY ==
--- NOTE | 2025-03-29 11:30 | MRI_ITS ---
PROCEDURE: LOWER EXT JOINT ONLY (ROUTINE) 03/29/2025 REASON FOR EXAM: PAIN TECHNIQUE: T1, T2, PD, LOWER EXT JOINT ONLY (ROUTINE) Multiplanar and multisequence images were obtained without IV contrast administration. COMPARISON: January 21, 2025 x-ray FINDINGS: Bone Marrow: There is a 1 cm developing osteochondral defect in the medial patellar facet with adjacent marrow edema, with no free fragment. Cruciate ligaments: There is increased T2 signal and attenuation in the distal 3rd of the anterior cruciate ligament without laxity, chronic grade 2 sprain, versus mucoid degeneration. The posterior cruciate appears intact. Collateral ligaments: The medial collateral ligament appears intact. The lateral collateral ligament complex appears intact. Extensor mechanism: The distal quadriceps and patellar tendons appear intact. The medial and lateral patellar retinaculum appear intact. Menisci: The lateral meniscus appears intact. There is degenerative intrasubstance signal in the medial meniscus which does not communicate to the articular surface. Effusion: There is a small joint effusion. There is a 1.1 x 0.3 by 4.0 cm Enriquez's cyst. Cartilage: Fissures are noted in the central portion of the medial and lateral patellar facets MRI/Lower Ext Joint Only (Routine) IMPRESSION: There is a 1 cm developing osteochondral defect in the medial patellar facet wi th adjacent marrow edema, with no free fragment. There is increased T2 signal and attenuation in the distal 3rd of the anterior cruciate ligament without laxity, chronic grade 2 sprain, versus mucoid degeneration. There is degenerative intrasubstance signal in the medial meniscus which does n ot communicate to the articular surface. There is a small joint effusion. There is a 1.1 x 0.3 by 4.0 cm Enriquez's cyst. Fissures are noted in the central portion of the medial and lateral patellar fa cets Reading Location: [facility]
== END | disposition home or self-care (01) ==
PROVIDERS: Referring Provider Orthopaedic Surgery; Visit Provider Orthopaedic Surgery
DX: M17.12 Unilateral primary osteoarthritis, left knee (principal)
CPT/HCPCS: 73721

== ENCOUNTER → 2025-07-25 | Outpatient (CLI) | payer MEDICAID, SELFPAY ==
--- NOTE | 2025-07-25 14:32 | CT_ITS ---
PROCEDURE: SINUS/FACIAL BONE WITH CONTRAS 07/25/2025 REASON FOR EXAM: SINUS TECHNIQUE: Procedure Code: CTSIW Modality: CT Procedure: SINUS/FACIAL BONE WITH CONTRAS Coronal and Sagittal reconstruction series were provided. CONTRAST: isovue 370 VOLUME: 75 mL One or more dose reduction techniques were used (e.g., Automated exposure control, adjustment of the mA and/or kV according to patient size, use of iterative reconstruction technique). RADIATION DOSE SUMMARY: CTDI Vol 22.63 mGy DLP :515.6mGycm COMPARISON: none FINDINGS: Focal fluid densities seen involving the left mastoid air cells. The middle ear clefts on both sides show normal pneumatization with no internal densities. Clear pneumatized right mastoid air cells and mastoid antrum. Normal appearance of the ossicular chain on either side. No bony erosive changes. Normal appearance of the scutum. Normal appearance of the cochlea, vestibules and semicircular canals on either side. No sizeable internal auditory canals space occupying lesions. Normal appearance of the nasopharynx. Minimal mucosal thickening of the ethmoidal air cells and right maxillary antrum. Clear rest of the scanned paranasal sinuses. Right side nasal septum deviation. CT/Sinus/Facial Bone WITH Contras IMPRESSION: Left mastoiditis. Minimal mucosal thickening of the ethmoidal air cells and right maxillary antru m. Otherwise, unremarkable study. Reading Location: [place] [id number]
== END | disposition home or self-care (01) ==
DX: H66.91 Otitis media, unspecified, right ear (principal)
CPT/HCPCS: 70487; Q9967; A4216

== ENCOUNTER 2025-07-26 11:11 | Day surgery (SDC) | payer MEDICAID, SELFPAY ==
--- NOTE | 2025-07-19 15:15 | PAT.ANESEVAL ---
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 When Was Last Pacemaker Check QUESTION #4 FULL TEXT: You/Your Family Experience fever (hyperthermia) with Anesthesia Last Oral Intake Last Oral intake: Last Oral Intake NPO since Meds taken in AM with sips of water? Meds patient instructed to take am of surgery PONV PONV - celebrity manager: PONV - celebrity manager Female No 07/19/25 12:34 HX of Motion Sickness No 07/19/25 12:34 HX of N/V After Surgery No 07/19/25 12:34 Non-Smoker No 07/19/25 12:34 Duration of Surgery greater Yes 07/19/25 12:34 than 60 minutes Number of Risk Factors 1 07/19/25 12:34 PONV Score Low Risk 07/19/25 12:34 Height & Weight Height & Weight: Anesthesia: Height & Weight Height 6 ft 2 in 01/21/25 11:20 Respiratory Assessment Respiratory Assessment - celebrity manager: Respiratory Tract Infection Hx - celebrity manager Hx Respiratory Tract Infection No 07/19/25 12:34 STOP Sleep Apnea STOP Sleep Apnea - celebrity manager: STOP Sleep Apnea - celebrity manager Hx Hypertension No 07/19/25 12:34 Hx Sleep Apnea No 07/19/25 12:34 CPAP BIPAP Do you snore loudly (louder No 07/19/25 12:34 than talking or can be heard Do you often feel tired/ No 07/19/25 12:34 fatigued/ sleepy during daytime? Has anyone observed you stop No 07/19/25 12:34 breathing during sleep? STOP Results Negative 07/19/25 12:34 QUESTION #5 FULL TEXT : Do you snore loudly (louder than talking or can be heard through closed doors)? 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 Specify any problems Hx of Preganancy in last 3 N/A 07/19/25 12:34 Months Nurse Filling Out Transfusion DSCHRIBER 07/19/25 12:34 & Questions: Date: 07/19/25 07/19/25 12:34 Time: 12:36 07/19/25 12:34 Patient unable to answer at this time (ie. confused, unrespo /Reproduction History /Reproductive History - celebrity manager: /Reproductive Hx- celebrity manager Hx Now No 07/19/25 12:34 Gestational Age (in weeks): EDC: Hx Hx Para Hx Section SAB No 07/19/25 12:34 Does the father of the baby or his family experience fever w Father of the baby Malignant Hypertension history comment [facility] Medical History (Updated 07/19/25 @ 12:50 by Gwendolyn Larson) Wears hearing aid Wears dentures Uses wheelchair History of renal disease Anemia Dietary restriction Difficulty swallowing Hx of encephalopathy Smoker Chronic respiratory failure Lives in fpc Wears glasses Alcohol use Thyroid disease Arthritis BPH (benign prostatic hyperplasia) Low iron Gastric reflux Hepatic fibrosis Polyneuropathy Otitis media History of edema History of pain when walking Hypotension History of CHF (congestive heart failure) Home Medications ?Medication ?Instructions ?Recorded ?Last Taken ?Type capsaicin 0.1 % topical cream 1 applic topical QHS LEG PAIN 09/27/24 Unknown History cholecalciferol (vitamin D3) 50 50 mcg PO QDAY SUPPLEMENT 09/27/24 12/06/24 08:00 History mcg (2,000 unit) capsule clotrimazole-betamethasone 1 1 applic topical DAILY RIGHT CHEEK 09/27/24 Unknown History %-0.05 % topical cream cyanocobalamin (vitamin B-12) 500 500 mcg PO QDAY SUPPLEMENT 09/27/24 12/06/24 08:00 History mcg lozenges diclofenac sodium 50 mg 50 mg PO Q6H PRN pain 09/27/24 12/05/24 History tablet,delayed release empagliflozin 10 mg tablet 10 mg PO QDAY CHF 09/27/24 12/01/24 History (Jardiance) ferrous sulfate 325 mg (65 mg 325 mg PO QDAY IRON DEFICIENCY 09/27/24 12/06/24 08:00 History iron) tablet fluticasone propionate 50 1 spray intranasal QHS MASTOIDITIS 09/27/24 12/06/24 08:00 History mcg/actuation nasal LEFT EAR spray,suspension folic acid 1 mg tablet 1 mg PO QDAY ANEMIA 09/27/24 12/06/24 08:00 History furosemide 20 mg tablet 20 mg PO MOWEFR CHF 09/27/24 12/06/24 08:00 History gabapentin 300 mg capsule 300 mg PO QDAY PAIN 09/27/24 12/06/24 14:00 History ipratropium 0.5 mg-albuterol 3 mg 3 ml inhalation Q4H PRN shortness 09/27/24 Unknown History (2.5 mg base)/3 mL nebulization of breath soln levothyroxine 25 mcg capsule 25 mcg PO QDAY HYPOTHYROIDISM 09/27/24 12/06/24 03:00 History magnesium oxide 400 mg PO 4X/DAY HYPOMAGNESEMIA 09/27/24 12/06/24 14:00 History melatonin 3 mg capsule 6 mg PO HS sleep 09/27/24 Unknown History metoprolol tartrate 25 mg tablet 12.5 mg PO QDAY CHF 09/27/24 12/07/24 05:00 History miconazole nitrate 2 % topical 1 applic topical QDAY ROSECA 09/27/24 12/05/24 History powder midodrine 10 mg tablet 10 mg PO TID HYPOTENSION 09/27/24 12/06/24 18:00 History pantoprazole 40 mg tablet,delayed 40 mg PO QDAY GERD 09/27/24 12/06/24 08:00 History release (Protonix) sodium chloride 0.65 % nasal spray 1 spray intranasal DAILY 09/27/24 12/06/24 08:00 History aerosol (Saline Nasal Mist) MASTOIDITIS LEFT EAR spironolactone 25 mg tablet 12.5 mg PO QDAY FLUID RETENTION 09/27/24 12/06/24 14:00 History tamsulosin 0.4 mg capsule 0.4 mg PO QHS BPH 09/27/24 12/06/24 08:00 History gabapentin 300 mg capsule 900 mg PO QHS NERVE PAIN 10/19/24 12/06/24 22:00 History docusate sodium 100 mg capsule 100 mg PO QDAY PRN constipation 02/25/25 Unknown History ondansetron HCl 4 mg tablet 4 mg PO Q8 PRN nausea and vomiting 02/25/25 Unknown History tramadol 50 mg tablet 50 mg PO Q6H PRN pain 02/25/25 Unknown History acetaminophen 500 mg tablet 1,000 mg PO Q6H PAIN 07/19/25 Unknown History (Acetaminophen Extra Strength) Allergy/AdvReac Type Severity Reaction Status Date / Time No Known Allergies Allergy Verified 07/19/25 12:16 Surgical History (Updated 07/19/25 @ 12:50 by Gwendolyn Larson) History of arthroplasty of right knee Hx of abdominal surgery History of esophagogastroduodenoscopy (EGD) History of thoracentesis History of myringotomy History of knee surgery H/O foot surgery Social History Smoking Status: Light Smoker (<10/day) alcohol intake: never Audit: Pertinent Findings Pertinent Findings EKG Perinent findings: 09/2023: SR with APCs, borderline prolonged QT interval Recommendation Anesthesia Recommendation Anesthesia recommendation: OPTIMIZED for anesthesia (BMP on DOS ) Follow up Details BMP Recommendation: Yes BMP Rec Details: BMP on DOS
[2025-07-26] VITALS (9 sets, daily range): BP systolic 120–147; BP diastolic 76–83; PULSE 60–68; RESP 12–18; TEMP 36.3–36.8; O2SAT 95–100; BMI 22.4
[2025-07-26] MEDS: Lactated Ringers 1,000 ML 15 ML IV (11:49)
--- NOTE | 2025-07-26 12:27 | PRE.ANES_ITS ---
ASA Classification* ASA Classification ASA Classification: 3 Assessment & Plan Anesthesia* Anesthesia Assessment Anesthesia Assessment: Discussed sedation and/or anesthesia options, risks, benefits, and alternatives with patient/parents/legal guardian/POA. Questions invited. The patient/parents/legal guardian/POA seems to understand and agrees to proceed with anesthesia plan. Reviewed the physical assessment, medical history, allergy history and patient home medications list prior to surgery/procedure/anesthetic and documented any changes. Performed airway and anesthesia risk assessments. Anesthesia Type Anesthesia Type: General History Source History Obtained from:: Patient and Chart Anesthesia Focused Assessment* Temperature: 98.2 F Pulse Rate: 63 Blood Pressure: 130/77 Respiratory Rate: 16 Pulse Ox: 100 Oxygen Delivery Method: Room Air Airway Assessment Mouth opens: >3 cm Mallampati Score: II Teeth Condition: Dentures (Edentulous) Neck Range of motion (ROM): Full ROM Labs Anesthesia Preop lab: CBC WBC, (4.4-11.0) 16.9 K/mm3 H 12/08/24, 07:15 RBC, (4.6-6.2) 3.13 M/mm3 L 12/08/24, 07:15 Hgb, (13.0-16.5) 10.5 g/dL L 12/08/24, 07:15 Hct, (40-54) 30.7 % L 12/08/24, 07:15 Plt Count, (150-450) 178 K/mm3 12/08/24, 07:15 CHEMISTRY Potassium, (3.3-5.1) 5.0 mmol/L 12/08/24, 07:15 Sodium, (133-145) 136 mmol/L 12/08/24, 07:15 BUN, (4-19) 24 mg/dL H 12/08/24, 07:15 Creatinine, (0.70-1.20) 1.02 mg/dL 12/08/24, 07:15 Glucose, (70-99) 133 mg/dL H 12/08/24, 07:15 POC Glucose, (74-106) 102 mg/dL 12/07/24, 05:56 COAG Pre-Assessment Diagnosis/Proposed Procedure Planned Operative Procedure(s): LEFT KNEE ARTHROSCOPY,PARTIAL MEDIAL MENISECTOMY Anesthesia History Anesthesia History - senior manager asset protection: Anesthesia History - senior manager asset protection Hx Hospitalization No 07/19/25 12:34 Any Problems With Anesthesia No 07/19/25 12:34 Cholinesterase deficiency No 07/19/25 12:34 You/Your Family Experience No 07/19/25 12:34 fever (hyperthermia) with Relationship Recent Exposure to Contagious No 07/26/25 11:51 Disease Does patient have nerve No 07/19/25 12:34 stimulator Patient instructed to have device shut off --Does patient have Pacemaker No 07/26/25 11:51 or ICD? When Was Last Pacemaker Check QUESTION #4 FULL TEXT: You/Your Family Experience fever (hyperthermia) with Anesthesia Last Oral Intake Last Oral intake: Last Oral Intake NPO since 01:00 07/26/25 11:51 Meds taken in AM with sips of No 07/26/25 11:51 water? Meds patient instructed to take am of surgery PONV PONV - senior manager asset protection: PONV - senior manager asset protection Female No 07/19/25 12:34 HX of Motion Sickness No 07/19/25 12:34 HX of N/V After Surgery No 07/19/25 12:34 Non-Smoker No 07/19/25 12:34 Duration of Surgery greater Yes 07/19/25 12:34 than 60 minutes Number of Risk Factors 1 07/19/25 12:34 PONV Score Low Risk 07/19/25 12:34 Height & Weight Height & Weight: Anesthesia: Height & Weight Height 6 ft 2 in 07/26/25 11:51 Weight: 79 kg 07/26/25 11:51 Body Mass Index (BMI) 22.4 07/26/25 11:51 Respiratory Assessment Respiratory Assessment - senior manager asset protection: Respiratory Tract Infection Hx - senior manager asset protection Hx Respiratory Tract Infection No 07/19/25 12:34 STOP Sleep Apnea STOP Sleep Apnea - senior manager asset protection: STOP Sleep Apnea - senior manager asset protection Hx Hypertension No 07/19/25 12:34 Hx Sleep Apnea No 07/19/25 12:34 CPAP BIPAP Do you snore loudly (louder No 07/19/25 12:34 than talking or can be heard Do you often feel tired/ No 07/19/25 12:34 fatigued/ sleepy during daytime? Has anyone observed you stop No 07/19/25 12:34 breathing during sleep? STOP Results Negative 07/19/25 12:34 QUESTION #5 FULL TEXT : Do you snore loudly (louder than talking or can be heard through closed doors)? 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 Specify any problems Hx of Preganancy in last 3 N/A 07/19/25 12:34 Months Nurse Filling Out Transfusion DSCHRIBER 07/19/25 12:34 & Questions: Date: 07/19/25 07/19/25 12:34 Time: 12:36 07/19/25 12:34 Patient unable to answer at this time (ie. confused, unrespo /Reproduction History /Reproductive History - senior manager asset protection: /Reproductive Hx- senior manager asset protection Hx Now No 07/19/25 12:34 Gestational Age (in weeks): EDC: Hx Hx Para Hx Section SAB No 07/19/25 12:34 Does the father of the baby or his family experience fever w Father of the baby Malignant Hypertension history comment Active Medications Active Medications: Current Medications Generic Name Dose Route Start Last Admin Trade Name Freq PRN Reason Stop Dose Admin Cefazolin Sodium 2 gm/ Sodium 110 mls @ 200 mls/hr 07/26/25 14:15 Chloride IV 07/26/25 14:47 INTRAOP ONE Lactated Ringer's 1,000 mls @ 15 mls/hr 07/26/25 11:45 07/26/25 11:49 IV 15 mls/hr .Q48H NICOLAS Administration PFSH Medical History Wears hearing aid Wears dentures Uses wheelchair History of renal disease Anemia Dietary restriction Difficulty swallowing Hx of encephalopathy Smoker Chronic respiratory failure [place] Wears glasses Alcohol use Thyroid disease Arthritis BPH (benign prostatic hyperplasia) Low iron Gastric reflux Hepatic fibrosis Polyneuropathy Otitis media History of edema History of pain when walking Hypotension History of CHF (congestive heart failure) Home Medications ?Medication ?Instructions ?Recorded ?Last Taken ?Type capsaicin 0.1 % topical cream 1 applic topical QHS LEG PAIN 09/27/24 Unknown History cholecalciferol (vitamin D3) 50 50 mcg PO QDAY SUPPLEM ENT 09/27/24 12/06/24 08:00 History mcg (2,000 unit) capsule clotrimazole-betamethasone 1 1 applic topical DAILY RI GHT CHEEK 09/27/24 Unknown History %-0.05 % topical cream cyanocobalamin (vitamin B-12) 500 500 mcg PO QDAY SUPP LEMENT 09/27/24 12/06/24 08:00 History mcg lozenges diclofenac sodium 50 mg 50 mg PO Q6H PRN pain 12/05/24 History tablet,delayed release empagliflozin 10 mg tablet 10 mg PO QDAY CHF 09/27/24 12/01/24 History (Jardiance) ferrous sulfate 325 mg (65 mg 325 mg PO QDAY IRON DEFI CIENCY 09/27/24 12/06/24 08:00 History iron) tablet fluticasone propionate 50 1 spray intranasal QHS MASTO IDITIS 09/27/24 12/06/24 08:00 History mcg/actuation nasal LEFT EAR spray,suspension folic acid 1 mg tablet 1 mg PO QDAY ANEMIA 09/27/24 12/06/24 08:00 History furosemide 20 mg tablet 20 mg PO MOWEFR CHF 09/27/24 12/06/24 08:00 History gabapentin 300 mg capsule 300 mg PO QDAY PAIN 09/27/24 12/06/24 14:00 History ipratropium 0.5 mg-albuterol 3 mg 3 ml inhalation Q4H PRN shortness 09/27/24 Unknown History (2.5 mg base)/3 mL nebulization of breath soln levothyroxine 25 mcg capsule 25 mcg PO QDAY HYPOTHYROI DISM 09/27/24 12/06/24 03:00 History magnesium oxide 400 mg PO 4X/DAY HYPOMAGNESE DEYSI 09/27/24 12/06/24 14:00 History melatonin 3 mg capsule 6 mg PO HS sleep 09/27/24 Un known History metoprolol tartrate 25 mg tablet 12.5 mg PO QDAY CHF 0 09/27/24 12/07/24 05:00 History miconazole nitrate 2 % topical 1 applic topical QDAY R OSECA 09/27/24 12/05/24 History powder midodrine 10 mg tablet 10 mg PO TID HYPOTENSION 12/06/24 18:00 History pantoprazole 40 mg tablet,delayed 40 mg PO QDAY GERD 0 09/27/24 12/06/24 08:00 History release (Protonix) sodium chloride 0.65 % nasal spray 1 spray intranasal DAILY 09/27/24 12/06/24 08:00 History aerosol (Saline Nasal Mist) MASTOIDITIS LEFT EAR spironolactone 25 mg tablet 12.5 mg PO QDAY FLUID RETE NTION 09/27/24 12/06/24 14:00 History tamsulosin 0.4 mg capsule 0.4 mg PO QHS BPH 09/27/24 0 12/06/24 08:00 History gabapentin 300 mg capsule 900 mg PO QHS NERVE PAIN 08/0212/06/24 22:00 History docusate sodium 100 mg capsule 100 mg PO QDAY PRN cons tipation 02/25/25 Unknown History ondansetron HCl 4 mg tablet 4 mg PO Q8 PRN nausea and vomiting 02/25/25 Unknown History tramadol 50 mg tablet 50 mg PO Q6H PRN pain Unknown History acetaminophen 500 mg tablet 1,000 mg PO Q6H PAIN 07/19 Unknown History (Acetaminophen Extra Strength) Allergy/AdvReac Type Severity Reaction Status Date / Time No Known Allergies Allergy Verified 07/19/25 12:16 Surgical History History of arthroplasty of right knee Hx of abdominal surgery History of esophagogastroduodenoscopy (EGD) History of thoracentesis History of myringotomy History of knee surgery H/O foot surgery Social History Smoking Status: Light Smoker (<10/day) alcohol intake: never Review of Systems (Anesthesia) ROS Narrative System reviewed and no additional complaints, except as documented.
--- NOTE | 2025-07-26 12:36 | PCM.HP.BLA ---
History and Physical Date of Admission: 07/26/25 [facility] [address] [place] [address] OFFICE VISIT Date of Service: 07/04/25 MR#: [id number] Acct: [id number] Name: GURJIT MENENDEZ Rep #: [id number] : 1960 Provider: Dr. Laron Vazquez, Age/Sex: 64/M [place] [facility] [place]: Signed Intake Vital Signs 01/21/2511:20 Height 6 ft 2 in Intake Visit Reasons: RIGHT KNEE Chief Complaint: Left knee pain Is patient in pain?: Yes (left knee ) Pain scale (1-10): 6 Allergies No Known Allergies Allergy (Verified 07/04/25 10:08) Medications ?Medication ?Instructions ?Recorded ?Confirmed ?Type acetaminophen 325 mg capsule 325 mg PO Q4H PRN pain 09/27/24 07/04/25 History Held on 12/08/24. Instructions: Duplicate capsaicin 0.1 % topical cream 1 applic topical QHS LEG PAIN 09/27/24 07/04/25 History cholecalciferol (vitamin D3) 50 50 mcg PO QDAY SUPPLEMENT 09/27/24 07/04/25 History mcg (2,000 unit) capsule clotrimazole-betamethasone 1 1 applic topical DAILY RIGHT CHEEK 09/27/24 07/04/25 History %-0.05 % topical cream cyanocobalamin (vitamin B-12) 500 500 mcg PO QDAY SUPPLEMENT 09/27/24 07/04/25 History mcg lozenges diclofenac sodium 50 mg 50 mg PO Q6H PRN pain 09/27/24 07/04/25 History tablet,delayed release Held on 12/08/24. Instructions: May resume after completion of blood thinner empagliflozin 10 mg tablet 10 mg PO QDAY CHF 09/27/24 07/04/25 History (Jardiance) ferrous sulfate 325 mg (65 mg 325 mg PO QDAY IRON DEFICIENCY 09/27/24 07/04/25 History iron) tablet fluticasone propionate 50 1 spray intranasal QHS MASTOIDITIS 09/27/24 07/04/25 History mcg/actuation nasal LEFT EAR spray,suspension folic acid 1 mg tablet 1 mg PO QDAY ANEMIA 09/27/24 07/04/25 History furosemide 20 mg tablet 20 mg PO MOWEFR CHF 09/27/24 07/04/25 History gabapentin 300 mg capsule 300 mg PO QDAY PAIN 09/27/24 07/04/25 History ipratropium 0.5 mg-albuterol 3 mg 3 ml inhalation Q4H PRN shortness 09/27/24 07/04/25 History (2.5 mg base)/3 mL nebulization of breath soln levothyroxine 25 mcg capsule 25 mcg PO QDAY HYPOTHYROIDISM 09/27/24 07/04/25 History magnesium oxide 400 mg PO 4X/DAY HYPOMAGNESEMIA 09/27/24 07/04/25 History melatonin 3 mg capsule 6 mg PO HS PRN sleep 09/27/24 07/04/25 History metoprolol tartrate 25 mg tablet 12.5 mg PO QDAY CHF 09/27/24 07/04/25 History miconazole nitrate 2 % topical 1 applic topical QDAY ROSECA 09/27/24 07/04/25 History powder midodrine 10 mg tablet 10 mg PO TID HYPOTENSION 09/27/24 07/04/25 History pantoprazole 40 mg tablet,delayed 40 mg PO QDAY GERD 09/27/24 07/04/25 History release (Protonix) sodium chloride 0.65 % nasal spray 1 spray intranasal DAILY 09/27/24 07/04/25 History aerosol (Saline Nasal Mist) MASTOIDITIS LEFT EAR spironolactone 25 mg tablet 12.5 mg PO QDAY FLUID RETENTION 09/27/24 07/04/25 History tamsulosin 0.4 mg capsule 0.4 mg PO QHS BPH 09/27/24 07/04/25 History gabapentin 300 mg capsule 900 mg PO QHS NERVE PAIN 10/19/24 07/04/25 History docusate sodium 100 mg capsule 100 mg PO QDAY 02/25/25 07/04/25 History ondansetron HCl 4 mg tablet 4 mg PO Q8 PRN 02/25/25 07/04/25 History tramadol 50 mg tablet 50 mg PO Q6H PRN 02/25/25 07/04/25 History amoxicillin 875 mg-potassium 1 tab PO BID 07/04/25 07/04/25 History clavulanate 125 mg tablet PFSH Medical History Hypertension Chronic respiratory failure Lives in [facility] Wears glasses Alcohol use Thyroid disease Arthritis BPH (benign prostatic hyperplasia) Low iron Gastric reflux Former smoker Hepatic fibrosis Polyneuropathy Otitis media History of edema History of pain when walking Hypotension History of CHF (congestive heart failure) Surgical History History of myringotomy History of knee surgery H/O foot surgery Social History Smoking Status: Former smoker alcohol intake: never HPI RIGHT KNEE Details: This documentation accurately reflects the service provided and the decisions made by me, Dr. Laron Vazquez, DO 07/04/25 0803. Part of today?s visit was documented by Erin Lucas RN, acting as scribe. GURJIT MENENDEZ is a 64 year old M here today for left knee pain. He reports ongoing left knee pain. He rates his pain 6/10 today. He finished PT one month ago for both knees. He states this did not decrease the left knee pain. He is walking at least three times per day. At times he feels as though his left knee will give out on him when he walks. He reports frequent popping in the knee which is painful and he will have pain after these events. He denies recent falls or injury to the knee. He would like to discuss options at this point since he tried PT. 04/06/2025 visit:64 year old M here today for left knee MRI review. Patient rates his pain a 5/10 today. He denies any recent or new injuries to the knees. He has finished physical therapy for the right knee following the TKA and he denies any physical therapy for the left knee. He is taking Tylenol and Tramadol for the pain. Continues to have the painful popping in the knee. He walks about 3 times a day and this occurs at least 3 times. All of his complaints are mainly over the anterior knee kneecap he denies having a dislocation event but states he has lots of injuries in the past. Plan:Patient is here for left knee pain and MRI review. His main complaint symptoms are directly over the anterior medial patella. This does correspond with an osteochondral lesion found on his MRI. He does occasionally get pain in the medial compartment but it seems to be most over his patella. I explained to him I did not have a surgery to offer for the patellar lesion. There is some edema in the bone which can improve with time and therapy. Is possible, bone bruise or injury that he cannot recall or patellar subluxation event. I did tell him I suspect there might be a medial meniscus tear but examination in his complaints do not seem consistent with this, and the radiologist did not appreciate it. I recommend we give it 2 months of physical therapy and time see how he responds. We can consider diagnostic arthroscopy in the future if not improved. 02/25/2025 visit:64 year old M here today for s/p Robotic assisted right total knee arthroplasty DOS 12/07/2024 and left knee pain. Patient states the right knee is doing well and he is happy with it after surgery. He states the left knee has been bothering him as well and has been putting up with it for quite a while. He denies any injury to the left knee. He describes the pain in the anterior aspect of the left knee. He did have a steroid injection at his last visit on 01/21/2025 and he states it gave him very mild relief for about a day. He does get painful snapping and popping in the front of the knee. When he puts his leg in a figure 4 position he feels pain on the lateral side of the knee. Plan:In regards to his right knee he is very happy with the outcome of his right total knee arthroplasty no further treatment is needed recommend continue strengthening he can follow-up 1 year postop for that In regards to his left knee he does not have any significant arthrosis on x-ray however there is some chondrocalcinosis , he has not improved after steroid injection. At this point I would recommend MRI of his left knee for further evaluation and management. As I do not have a specific reason for the amount of pain he is having. He has done therapy. Ortho Exam General General: Yes no acute distress and Yes well groomed Neurologic: Yes alert and Yes oriented x3 Psychologic: Yes reasonable and appropriate Right Knee Patella Translation: 1 Left Knee Skin/Wound: No ecchymosis, No erythema and No swelling Knee ROM: Yes ROM-Extension -20 to 0 (-3) and Yes ROM-Flexion 0-140 (92) Examination: Yes med jt line tenderness, No Lat jt line tenderness and Yes Otto's Test Stability: NML: Anterior Drawer, NML: Posterior Drawer, NML: Valgus 0, NML: Valgus 30, NML: Varus 0 and NML: Varus 30 Patella Translation: 1 KNEE: no effusion Head: Normocephalic Atraumatic Chest: symmetrical rise, non-labored breathing, no audible wheeze Abdomen: no guarding, non-rigid Supplemental Info 07/04/2025 x-ray left knee: Chondrocalcinosis medial and lateral 03/29/2025 MRI left knee: There is a 1 cm developing osteochondral defect in the medial patellar facet with adjacent marrow edema, with no free fragment. There is increased T2 signal and attenuation in the distal 3rd of the anterior cruciate ligament without laxity, chronic grade 2 sprain, versus mucoid degeneration. There is degenerative intrasubstance signal in the medial meniscus which does not communicate to thearticular surface. There is a small joint effusion. There is a 1.1 x 0.3 by 4.0 cm Enriquez's cyst. Fissures are noted in the central portion of the medial and lateral patellar facets . I am questionable of a medial meniscus tear that was not read. 01/21/2025 x-ray left knee: There is chondrocalcinosis of the medial meniscus and to a lesser degree the lateral meniscus however overall preserved joint space and no significant spurring there is osteopenia. 01/21/2025 right knee x-ray: s/p cemented total knee arthroplasty with good interfaces. no concern. 12/07/2024 right total knee arthroplasty: Dr. Vazquez Coding Level of Care Code Off vis,est,level 4 Diagnoses Chondrocalcinosis of left knee M11.262 Complex tear of medial meniscus of left knee as current injury, subsequent encounter S83.232D Tear current or old: current Encounter type: subsequent encounter Meniscus tear of knee type: complex Primary osteoarthritis of left knee M17.12 Osteoarthritis type: primary Mechanical pain of left knee M25.562 Assessment and Plan Assessment and Plan (1) Chondrocalcinosis of left knee: Status: Acute (2) Tear of medial meniscus of left knee: Status: Acute Qualifiers: Tear current or old: current Encounter type: subsequent encounter Meniscus tear of knee type: complex Qualified Code(s): S83.232D - Complex tear of medial meniscus, current injury, left knee, subsequent encounter (3) Left knee DJD: Status: Acute Qualifiers: Osteoarthritis type: primary Qualified Code(s): M17.12 - Unilateral primary osteoarthritis, left knee (4) Mechanical pain of left knee: Status: Acute Orders: Orders Knee 4 or More Views Today M25.562 - Pain in left knee Plan Patient is here today for continued left knee painful mechanical symptoms and instability. He did have an MRI which I do believe he does have a medial meniscus tear, I did obtain and review xrays today with patient and his arthritis has not progressed. I spoke with patient that he does likely have a meniscus tear and that we can go into the knee arthroscopically and perform a partial meniscectomy of the medial meniscus to help with his mechanical symptoms. Patient would like to proceed with the knee arthroscopy. Respites alternatives of the surgery were reviewed including risk of anesthesia, bleeding ,infection, nerve artery tissue damage, need for further surgery continued pain, blood clot. Tentative surgery date July 26, 2025 same-day surgery will need medical clearance Follow up at 2 weeks post-op or sooner if pain, swelling, numbness or associated symptoms, or concerns develop. All questions answered. Patient in agreement of plan. 07/04/25 1122 <Electronically signed by Laron Vazquez DO> Date Laron Vazquez DO I have examined the patient and the H&P has been reviewed. There are no clinical changes since date of exam.
[2025-07-26] MEDS: Cefazolin 1 GM/5 ML Vial 2 GM IV (13:30)
[2025-07-26] MEDS: Midazolam 2 MG/2 ML Syringe IV (13:30)
[2025-07-26] MEDS: fentaNYL 100 MCG/2 ML Ampul IV (13:35)
[2025-07-26] MEDS: Lidocaine 1% (5 ml sdv) 5 ML Vial IV (13:35)
[2025-07-26] MEDS: Epinephrine (1 mg/ml) 1 MG/ML VIAL (13:50)
[2025-07-26] MEDS: Bupiv/Epi 0.25% 30 ML Vial (13:50)
[2025-07-26] MEDS: Ketorolac 30 MG/ML Syringe 15 MG IV (14:05)
--- NOTE | 2025-07-26 14:12 | OP.PCM_ITS ---
Operative Report (Standard) Operative Information Date of Procedure: 07/26/25 Pre-Operative Diagnosis: Left knee medial meniscus tear DJD Post-Operative Diagnosis: Same Surgery/Procedure Performed: Left knee arthroscopic partial medial meniscectomy and chondroplasty therapist occupational: No Type of Anesthesia: General RN Documented Start/Stop Times: Operation Date: 07/26/25 14:00 Case Time Into Pre-Op 07/26/25 11:36 Anesthesia Start 07/26/25 13:27 Into Room 07/26/25 13:27 Procedure Start 07/26/25 13:50 Procedure End 07/26/25 14:10 Anesthesia End 07/26/25 14:11 Out of Room 07/26/25 14:11 Procedure Start Time: 13:50 Procedure Stop Time: 14:10 Select all DRAINS/GRAFTS/IMPLANTS that apply: None Estimated Blood Loss: 5 Specimen collected: No Description of surgery: Preop diagnosis: Left knee DJD medial meniscus tear Postoperative diagnosis: Left knee chondrocalcinosis with degenerative tearing of the medial meniscus small area of grade 4 cartilage wear of the medial femoral condyle with loose cartilage flaps there was areas of the trochlea 2 x 2 with grade 4 cartilage wear grade 3 of the patellar apex. Procedure: Left knee arthroscopic partial medial meniscectomy chondroplasty medial femoral condyle and trochlea Anesthesia: General Estimated blood loss: [5] mL Tourniquet time: 20 minutes 300 mmHg Complications: none Indication for procedure: 64-year-old male patient who has had ongoing knee pain failing conservative treatment did have an MRI with questionable medial meniscus tear DJD and chondrocalcinosis the patient did wish to proceed with an elective arthroscopic surgery to attempt to alleviate the symptoms. Risk benefits and alternatives of the procedure were reviewed including risk of bleeding infection nerve artery tissue damage need for further surgery continued pain and expected postoperative course. Procedure: The patient was met in the preoperative holding area. The operative extremity was identified by both patient and physician and family and marked. Patient was brought back to the operating room on a wheeled cart and transferred to the operating table in the supine position. Anesthesia was started. A well-padded tourniquet was placed on the operative extremity. A lower extremity leg conroy was secured to the operative extremity. The contralateral extremity was well-padded and the end of the bed was flexed to 90 degrees. The patient was prepped and draped in the usual sterile fashion. A timeout was called to ensure the proper patient, procedure, and extremity were being contemplated. 0.5% Marcaine with epinephrine was injected into the planned incisional areas under the skin only. An Esmarch was used to exsanguinate the extremity and the tourniquet was inflated. An 11 blade scalpel was used to make a stab incision in the anterior lateral portal. The arthroscope was inserted into the intercondylar notch and inflow and outflow tubes were attached. Arthroscopic visualization began. The medial compartment was entered. An 18-gauge spinal needle was used to establish the placement for anterior medial portal. An 11 blade scalpel was used to make a stab incision. Blunt probe was inserted followed by a meniscal probe. There is noted to be chondrocalcinosis of the medial meniscus with degenerative degenerative tearing of the posterior horn of the Zubrod arthroscopic biting instruments a shaver and ArthroCare wand partial medial meniscectomy was performed also gentle chondroplasty of a 1.5 x 1.5 area of the medial femoral condyle the ACL was [found to be intact]. The lateral compartment was entered and was free of meniscal or cartilage pathology The arthroscope was switched to the medial portal to complete the procedure. The medial and lateral gutters were inspected and [were free of loose bodies]. The patellofemoral joint was inspected and there was grade 3 cartilage wear the patellar apex as well as grade 4 of the trochlea. [There was good patellar tracking.] The knee was thoroughly irrigated and drained. An intra-articular injection with 5 cc 0.5% Marcaine plain [and 40 mg of Depo-Medrol] was injected intra-articularly. The arthroscope was removed the portals were closed with 3-0 nylon arthroscopic stitches. Followed by Xeroform 4 x 4's ABDs web roll and an Ayan wrap. The tourniquet was let down and the drapes were removed. All counts were correct. The patient was brought back to the PACU in stable condition. Surgical Findings: As above Complications Complications: No
--- NOTE | 2025-07-26 14:16 | DCINST_ITS ---
Discharge Instructions DC O2, CPAP, BIPAP needs Home O2 Discharge instructions: No Dressing / Incision Weight Bearing Status: Weight bearing as tolerated Dressing / Incision Call your doctor if you observe: Shortness of breath and Chest pain Additional Dressing/Incision Instructions:: Ice and elevate next 72 hours .keep dressing on clean and dry for 48 hours then may remove begin showering daily but do not submerge in tub or pool. After shower may apply Band-Aids . Encourage knee range of motion weightbearing as tolerated, use crutches until confident in knee then may discontinue. No strenuous activity. When not ambulating keep iced and elevated next 72 hours. Do not mix pain medication with recreational drugs or alcohol only take as prescribed can be addictive and abusive, call with any q uestions or concerns. Follow Up Care Please Follow Up With: Laron Vazquez DO When: 2 weeks Test Results: Test results from this visit will be discussed in further detail at your follow- up appointment, if applicable. Discharge Plan Admission Primary Reason for Your Visit: Left knee arthroscopy Attending Provider: Laron Vazquez Primary Care Provider: Destiny Luna Instructions Print Language: Mongolian Discharge Orders/Prescriptions Prescriptions: New oxycodone 5 mg tablet 5 - 10 mg PO Q6H PRN (Reason: pain) 7 Days Qty: 30 0RF Continued cyanocobalamin (vitamin B-12) 500 mcg lozenge 500 mcg PO QDAY capsaicin 0.1 % cream 1 applic topical QHS Rx Instructions: do not wash area for at least 30 min after application clotrimazole-betamethasone 1-0.05 % cream 1 applic topical DAILY diclofenac sodium 50 mg tablet,delayed release (DR/EC) 50 mg PO Q6H PRN (Reason: pain) fluticasone propionate 50 mcg/actuation spray,suspension 1 spray intranasal QHS Rx Instructions: administer into each nostril folic acid 1 mg tablet 1 mg PO QDAY furosemide 20 mg tablet 20 mg PO MOWEFR gabapentin 300 mg capsule 300 mg PO QDAY ipratropium-albuterol 0.5 mg-3 mg(2.5 mg base)/3 mL solution for nebulization 3 ml inhalation Q4H PRN (Reason: shortness of breath) ferrous sulfate 325 mg (65 mg iron) tablet 325 mg PO QDAY Jardiance 10 mg tablet 10 mg PO QDAY levothyroxine 25 mcg capsule 25 mcg PO QDAY magnesium oxide 400 mg magnesium capsule 400 mg PO 4X/DAY melatonin 3 mg capsule 6 mg PO HS metoprolol tartrate 25 mg tablet 12.5 mg PO QDAY miconazole nitrate 2 % powder 1 applic topical QDAY midodrine 10 mg tablet 10 mg PO TID Rx Instructions: do not give last dose of day after 6PM or within 4 hrs of bedtime pantoprazole [Protonix] 40 mg tablet,delayed release (DR/EC) 40 mg PO QDAY Saline Nasal Mist 0.65 % aerosol,spray 1 spray intranasal DAILY spironolactone 25 mg tablet 12.5 mg PO QDAY tamsulosin 0.4 mg capsule 0.4 mg PO QHS cholecalciferol (vitamin D3) 50 mcg (2,000 unit) capsule 50 mcg PO QDAY docusate sodium 100 mg capsule 100 mg PO QDAY PRN (Reason: constipation) ondansetron HCl 4 mg tablet 4 mg PO Q8 PRN (Reason: nausea and vomiting) gabapentin 300 mg capsule 900 mg PO QHS acetaminophen [Acetaminophen Extra Strength] 500 mg tablet 1,000 mg PO Q6H Held tramadol 50 mg tablet 50 mg PO Q6H PRN (Reason: pain) Hold Instructions: Do not take in conjunction with postoperative narcotic pain medication may resume after if needed Referrals / Follow Up: Destiny Luna MD [Primary Care Provider, Family Practice] Disposition Disposition (needs filled in before D/C Order can be placed): Home, Self Care
--- NOTE | 2025-07-26 14:18 | PCM.POST.ANE ---
Anesthesia: Postop Eval I Current Vital Signs Temperature: 97.3 F Pulse Rate: 66 Blood Pressure: 125/81 Respiratory Rate: 12 Pulse Ox: 96 Oxygen Delivery Method: Room Air Assessment Airway patent: Yes Spontaneous unlabored respirations: Yes Mental status: Asleep nausea: No Vomiting: No Anesthesia Complication: No Fluid Hydration Crystalloid volume administer (ml): 700 Total IV fluid infused: 700 Progress Note Anesthesia document: Postop Eval 1 completed: Yes
--- NOTE | 2025-07-26 16:34 | POSTOPAN2_ITS ---
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 Spontaneous unlabored Yes 07/26/25 14:19 SVP GROUP DIRECTOR.SHOF respirations Mental status Asleep 07/26/25 14:19 SVP GROUP DIRECTOR.SHOF nausea No 07/26/25 14:19 SVP GROUP DIRECTOR.SHOF Vomiting No 07/26/25 14:19 SVP GROUP DIRECTOR.SHOF Anesthesia Postop Eval I: Fluid Summary Crystalloid volume administer 700 07/26/25 14:19 SVP GROUP DIRECTOR.SHOF (ml) Colloids volume administered ( ml) Blood Product volume administered (ml) Total IV fluid infused 700 07/26/25 14:19 SVP GROUP DIRECTOR.SHOF Anesthesia Postop Eval I: Summary Notes Anesthesia Complication No 07/26/25 14:19 SVP GROUP DIRECTOR.SHOF Anesthesia Complication Comment: Post-operative progress note Anesthesia: Postop Eval II Evaluation Mental status: Awake and Calm Pain Level: 1 nausea: No Vomiting: No Complications Anesthesia Complication: No
--- NOTE | 2025-07-26 16:34 | PCM.POSTANE2 ---
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 Spontaneous unlabored Yes 07/26/25 14:19 HARD TILE SETTER.SHOF respirations Mental status Asleep 07/26/25 14:19 HARD TILE SETTER.SHOF nausea No 07/26/25 14:19 HARD TILE SETTER.SHOF Vomiting No 07/26/25 14:19 HARD TILE SETTER.SHOF Anesthesia Postop Eval I: Fluid Summary Crystalloid volume administer 700 07/26/25 14:19 HARD TILE SETTER.SHOF (ml) Colloids volume administered ( ml) Blood Product volume administered (ml) Total IV fluid infused 700 07/26/25 14:19 HARD TILE SETTER.SHOF Anesthesia Postop Eval I: Summary Notes Anesthesia Complication No 07/26/25 14:19 HARD TILE SETTER.SHOF Anesthesia Complication Comment: Post-operative progress note Anesthesia: Postop Eval II Evaluation Mental status: Awake and Calm Pain Level: 1 nausea: No Vomiting: No Complications Anesthesia Complication: No
== END 2025-07-26 16:00 | disposition home or self-care (01) ==
LOC: SDC 11:17 → AC 11:19
PROVIDERS: PCP Hospitalist; Referring Provider Orthopaedic Surgery; Visit Provider Orthopaedic Surgery
PROC: (CPT 29870; principal; 2025-07-26 13:40)
DX: S83.232A Complex tear of medial meniscus, current injury, left knee, initial encounter (principal); I11.0 Hypertensive heart disease with heart failure; I50.9 Heart failure, unspecified; X58.XXXA Exposure to other specified factors, initial encounter; M17.12 Unilateral primary osteoarthritis, left knee; M11.262 Other chondrocalcinosis, left knee; E03.9 Hypothyroidism, unspecified; I95.9 Hypotension, unspecified; N40.0 Benign prostatic hyperplasia without lower urinary tract symptoms; G62.9 Polyneuropathy, unspecified; E61.1 Iron deficiency; D64.9 Anemia, unspecified; K21.9 Gastro-esophageal reflux disease without esophagitis; Z96.651 Presence of right artificial knee joint; F17.200 Nicotine dependence, unspecified, uncomplicated; Z79.899 Other long term (current) drug therapy; Z79.890 Hormone replacement therapy
CPT/HCPCS: 29881; 01400; J2405